=== PATIENT | female | born 1950 | race Caucasian/White ===

== ENCOUNTER 2016-05-11 08:26 | Outpatient (CLI) | payer MEDICARE | END 2016-05-11 08:27 | disposition home or self-care (01) | DX: Z12.2 Encounter for screening for malignant neoplasm of respiratory organs (principal); J43.9 Emphysema, unspecified; F17.210 Nicotine dependence, cigarettes, uncomplicated; R06.00 Dyspnea, unspecified | CPT/HCPCS: 94060; G0297; J7613 ==

== ENCOUNTER 2016-05-11 08:28 | Outpatient (CLI) | payer MEDICARE ==
[2016-05-11] MEDS ORDERED: ALBUTEROL NEB 2.5 MG/3 ML INH ONE (09:35)
== END 2016-05-11 08:29 | disposition home or self-care (01) ==
DX: R06.00 Dyspnea, unspecified (principal)

== ENCOUNTER 2016-05-29 09:39 | Outpatient (CLI) | payer MEDICARE | END 2016-05-29 09:40 | disposition home or self-care (01) | DX: Z12.31 Encounter for screening mammogram for malignant neoplasm of breast (principal) ==

== ENCOUNTER 2016-06-22 11:40 | Day surgery (SDC) | payer MEDICARE ==
[2016-06-22] MEDS ORDERED: LACTATED RINGERS 1,000 ML IV ONE ×2 (12:28→14:04)
[2016-06-22] MEDS ORDERED: fentaNYL 250 MCG/5 ML VIAL IVP ONE (13:04)
[2016-06-22] MEDS ORDERED: MIDAZOLAM 2 MG/2 ML VIAL IVP ONE (13:04)
== END 2016-06-22 11:41 | disposition home or self-care (01) ==
PROC: 0DBM8ZX Excision of Descending Colon, Via Natural or Artificial Opening Endoscopic, Diagnostic (ICD-10-PCS; principal; 2016-06-22 12:45)
DX: Z12.11 Encounter for screening for malignant neoplasm of colon (principal); D12.4 Benign neoplasm of descending colon; F32.9 Major depressive disorder, single episode, unspecified; K21.9 Gastro-esophageal reflux disease without esophagitis; I10 Essential (primary) hypertension; E78.00 Pure hypercholesterolemia, unspecified; Z98.1 Arthrodesis status; Z96.619 Presence of unspecified artificial shoulder joint; F17.210 Nicotine dependence, cigarettes, uncomplicated; Z79.82 Long term (current) use of aspirin; Z88.0 Allergy status to penicillin; Z88.2 Allergy status to sulfonamides; Z88.5 Allergy status to narcotic agent
CPT/HCPCS: 45380; J3010; J7120

== ENCOUNTER 2016-09-02 03:27 | Emergency (ER) | payer MEDICARE | END 2016-09-02 05:10 | disposition home or self-care (01) | DX: R33.9 Retention of urine, unspecified (principal); Z98.890 Other specified postprocedural states; I10 Essential (primary) hypertension; K21.9 Gastro-esophageal reflux disease without esophagitis; Z79.82 Long term (current) use of aspirin ==

== ENCOUNTER 2016-09-04 15:19 | Emergency (ER) | payer MEDICARE ==
--- NOTE | 2016-09-04 15:56 | ED Physician Documentation ---
History of Present Illness - Stated complaint Stated Complaint: FEMALE - Chief complaint Chief Complaint: Abd Pain - Additonal information Additional information: hx from pt approx 1 [place] op for urinary retention had miner placed followed up with her urologist today - miner removed - she was able to urine and empty bladder and was observed for a few hr at clinic prior to heading back to [facility] unfortunately upon arrival home she again could not void she has already spoken to her urologist who advised to come to ER and have cath replaced and it will need to stay in a week this time otherwise doing well Review of Systems Constitutional: denies: Fever GI: reports: Abdominal Pain : reports: Unable to Void PD PAST MEDICAL HISTORY - Past Medical History Cardiovascular: Hypertension, Other Respiratory: None Neuro: None Endocrine/Autoimmune: None GI: GERD 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: Other : Incontinence HEENT: None Psych: Claustrophobia Musculoskeletal: Other Derm: None - Past Surgical History Past Surgical History: Yes General: Colonoscopy Ortho: Other Cardiovascular: Angioplasty - Present Medications Home Medications: Ambulatory Orders Medication Instructions Recorded Confirmed Aspirin [Aspir-Low] 81 mg PO DAILY 06/21/16 06/21/16 Cholecalciferol [Vitamin D3] 5,000 unit PO DAILY 06/21/16 06/22/16 Ibuprofen 200 mg PO DAILY 06/21/16 06/21/16 Omeprazole 40 mg PO DAILY 06/21/16 06/21/16 Simvastatin 40 mg PO DAILY 06/21/16 06/21/16 Turmeric Root Extract [Turmeric] 500 mg PO DAILY 06/21/16 06/22/16 Ubidecarenone [Co Q-10] 100 mg PO DAILY 06/21/16 06/22/16 Vitamin B Complex Vit C No.4 150 mg PO DAILY 06/21/16 06/22/16 [Super B Complex] buPROPion [Wellbutrin Sr] 150 mg PO BID 06/21/16 06/22/16 oxyCODONE ER [OxyCONTIN] 5 mg PO DAILY 06/21/16 06/22/16 - Allergies Allergies/Adverse Reactions: Allergies Allergy/AdvReac Type Severity Reaction Status Date / Time codeine Allergy Unknown Verified 09/04/16 15:26 doxycycline Allergy Respiratory Verified 09/04/16 15:26 Penicillins Allergy Unknown Verified 09/04/16 15:26 Sulfa (Sulfonamide Allergy Unknown Verified 09/04/16 15:26 Antibiotics) - Social History Does the pt smoke?: No Smoking Status: Never smoker Does the pt drink ETOH?: No Does the pt have substance abuse?: No - Immunizations Immunizations are current?: Yes - POLST Patient has POLST: No PD ED PE NORMAL - Vitals Vital signs reviewed: Yes (BP high 2/2 pain) - General General: Alert and oriented X 3 - Cardiac Cardiac: RRR - Respiratory Respiratory: No respiratory distress, Clear bilaterally - Abdomen Abdomen: Soft, Non tender (miner already placed and draining) - Neuro Neuro: Alert and oriented X 3 Results - Vitals Vitals: Vital Signs - 24 hr 09/04/16 09/04/16 15:22 16:06 Temperature 35.6 C L Heart Rate 94 64 Respiratory 18 18 Rate Blood Pressure 220/109 H 158/64 H O2 Saturation 100 100 Oxygen O2 Source Room air PD MEDICAL DECISION MAKING - ED course ED course: BP better Departure - Departure Disposition: 01 Home, Self Care Clinical Impression: Urinary retention Condition: Good Instructions: ED Catheter Care Shayna Comments: Follow up with your urologist in a week as planned Return if worse Follow up with your PMD about your blood pressure - it was high today Discharge Date/Time: 09/04/16 16:07
[2016-09-04 16:07] VITALS: BP 158/64
== END 2016-09-04 16:07 | disposition home or self-care (01) ==
LOC: ED 15:19
DX: R33.9 Retention of urine, unspecified (principal); Z98.890 Other specified postprocedural states; I10 Essential (primary) hypertension; K21.9 Gastro-esophageal reflux disease without esophagitis; Z79.82 Long term (current) use of aspirin
CPT/HCPCS: 51702; 99283

== ENCOUNTER 2016-09-12 18:42 | Emergency (ER) | payer MEDICARE ==
--- NOTE | 2016-09-12 20:11 | ED Physician Documentation ---
PD HPI FEMALE - Stated complaint Stated Complaint: DIFFICULTY URINATING - Chief complaint Chief Complaint: General - History obtained from History obtained from: Patient - History of Present Illness Timing - onset: Today Timing - details: Gradual onset, Still present Associated symptoms: Abdominal pain, Pelvic pain Similar symptoms before: Work up / diagnostics, Treatment, Follow up Recently seen: Clinic - Additional information Additional information: Patient is a 66 year old female presenting to the emergency department for urinary retention. Patient had procedure done on her bladder about a week ago. she had, had an indwelling miner in place but she saw her urologist today who took it out. all of the testing that was performed and was within normal limits. Patient states that she went home today and she tried straight cathing 5 times with little relief. Patient called the office who told her to have a miner placed and follow up wiht them. Review of Systems Constitutional: denies: Fever, Chills Eyes: denies: Loss of vision, Decreased vision Ears: denies: Ear pain, Drainage/discharge Nose: denies: Rhinorrhea / runny nose, Congestion Throat: denies: Sore throat Cardiac: denies: Chest pain / pressure GI: reports: Abdominal Pain, Abdominal Swelling. denies: Nausea, Vomiting : reports: Unable to Void. 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: Other : Incontinence HEENT: None Psych: Claustrophobia Musculoskeletal: Other Derm: None - Past Surgical History Past Surgical History: Yes General: Colonoscopy Ortho: Other Cardiovascular: Angioplasty - Present Medications Home Medications: Ambulatory Orders Medication Instructions Recorded Confirmed Cholecalciferol [Vitamin D3] 5,000 unit PO DAILY 06/21/16 09/12/16 Omeprazole 40 mg PO DAILY 06/21/16 09/12/16 Simvastatin 40 mg PO DAILY 06/21/16 09/12/16 Turmeric Root Extract [Turmeric] 500 mg PO DAILY 06/21/16 09/12/16 Ubidecarenone [Co Q-10] 100 mg PO DAILY 06/21/16 09/12/16 Vitamin B Complex Vit C No.4 150 mg PO DAILY 06/21/16 09/12/16 [Super B Complex] buPROPion [Wellbutrin Sr] 150 mg PO BID 06/21/16 09/12/16 oxyCODONE ER [OxyCONTIN] 5 mg PO DAILY 06/21/16 09/12/16 - Allergies Allergies/Adverse Reactions: Allergies Allergy/AdvReac Type Severity Reaction Status Date / Time codeine Allergy Unknown Verified 09/12/16 19:03 doxycycline Allergy Respiratory Verified 09/12/16 19:03 Penicillins Allergy Unknown Verified 09/12/16 19:03 Sulfa (Sulfonamide Allergy Unknown Verified 09/12/16 19:03 Antibiotics) - Social History Does the pt smoke?: No Smoking Status: Never smoker Does the pt drink ETOH?: No Does the pt have substance abuse?: No - Immunizations Immunizations are current?: Yes - POLST Patient has POLST: No PD ED PE NORMAL - Vitals Vital signs reviewed: Yes - General General: Alert and oriented X 3, No acute distress - HEENT HEENT: Atraumatic, PERRL, Pharynx benign - Neck Neck: Supple, no meningeal sign, No JVD - Cardiac Cardiac: RRR, No murmur - Respiratory Respiratory: No respiratory distress, Clear bilaterally - Derm Derm: Normal color, Warm and dry, No rash - Extremities Extremities: No deformity, No tenderness to palpate - Neuro Neuro: Alert and oriented X 3, jowl trimmer 2-12 intact, No motor deficit, No sensory deficit, Normal speech - Psych Psych: Normal mood, Normal affect PD ED PE EXPANDED - General General: Alert, Anxious - Abdomen Abdomen: Tender to palpation, Suprapubic Results - Vitals Vitals: Vital Signs - 24 hr 09/12/16 09/12/16 18:59 20:38 Temperature 36.4 C L 36.7 C Heart Rate 74 65 Respiratory 20 18 Rate Blood Pressure 139/89 H 137/66 H O2 Saturation 96 98 Oxygen O2 Source Room air PD MEDICAL DECISION MAKING - ED course Complexity details: reviewed old records, re-evaluated patient, considered differential, d/w patient ED course: Patient was seen and examined at bedside. Miner had already been placed with about 250ml of urine. Patient required no further work up at this time and was stable for discharge with outpatient follow up with her urologist. Departure - Departure Disposition: 01 Home, Self Care Clinical Impression: Urinary retention Condition: Good Instructions: ED Retention Urinary Female, ED Catheter Care Miner Follow-Up: Kings Arriaza MD [Primary Care Provider] - Within 3 Days (please follow up with your urologist in the next three days) Comments: Your sympotms today are being caused by urinary retention. A miner catheter has been placed and will remain in until you are able to follow up with your urologist. You can take motrin or tylenol as needed for pain. You can return to the emergency department at any time for new, worsening or uncontrollable symptoms. Discharge Date/Time: 09/12/16 20:40
[2016-09-12 20:39] VITALS: BP 137/66
== END 2016-09-12 20:40 | disposition home or self-care (01) ==
LOC: ED 18:42
DX: R33.9 Retention of urine, unspecified (principal); R10.2 Pelvic and perineal pain; I10 Essential (primary) hypertension; K21.9 Gastro-esophageal reflux disease without esophagitis
CPT/HCPCS: 51798; 99283

== ENCOUNTER 2017-09-25 11:11 | Outpatient (CLI) | payer MEDICARE ==
--- NOTE | 2017-09-25 15:41 | XRAY Preliminary Report ---
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 [facility] SITE ID: [id number]
--- NOTE | 2017-09-25 15:54 | XRAY Report ---
EXAM: RIGHT THUMB DIGIT RADIOGRAPHY EXAM DATE: 09/25/2017 12:37 PM. CLINICAL HISTORY: Chronic pain at the base of the right thumb. COMPARISON: None. TECHNIQUE: 3 views. FINDINGS: Bones: Normal. No fracture or bone lesion. Joints: Slight narrowing and tiny osteophytes at the first carpometacarpal joint without subluxation. Tiny osteophytes off the base first distal phalanx. Normal caliber interphalangeal joint. Soft Tissues: Normal. No soft tissue swelling. 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 [facility] Referring Provider Line: [phone] SITE ID: [id number]
== END 2017-09-25 11:12 | disposition home or self-care (01) ==
LOC: DI 11:11
PROVIDERS: ATTEND Nurse Practitioner Family
DX: M79.644 Pain in right finger(s) (principal); M12.841 Other specific arthropathies, not elsewhere classified, right hand
CPT/HCPCS: 73140

== ENCOUNTER 2018-03-02 06:40 | Outpatient (CLI) | payer MEDICARE | END 2018-03-02 06:41 | disposition critical access hospital (66) | LOC: EMS 06:40 | PROVIDERS: ATTEND Surgery | DX: R51 Headache (principal); M54.5 Low back pain; R11.0 Nausea | CPT/HCPCS: A0425; A0427 ==

== ENCOUNTER 2018-03-02 07:02 | Inpatient (IN) | payer MEDICARE ==
--- NOTE | 2018-03-02 07:43 | ED Physician Documentation ---
History of Present Illness - Stated complaint Stated Complaint: BACK PX - Chief complaint Chief Complaint: Abd Pain - Additonal information Additional information: hx from pt 68 female pmnhx HTN GERD and multiple spine and joint surgeries to ED BIBA today for fever she states she has been ill for 2.5 months she describes extreme fatigue, myalgias, int frontal TENORIO, and fevers to 103 and shaking chills she has been to her PMD Dr Arriaza numerous times and states she has had an extensive work up she report + CRP PAVEL and states dx with PMR and started on prednisone about a week ago she also report her WBC was 200K sounds like she had blood cultures (she describes some large bottles being drawn not just tubes) she had two episodes of black tarry stools this week so was sent home with a stool guiac kit she self caths and has lower abd pain she has nausea and retching no CP SOA or cough no sig back pain no skin wounds nom travel she had a neg TB test Review of Systems Constitutional: reports: Fever, Chills, Myalgias Cardiac: denies: Chest pain / pressure, Palpitations Respiratory: denies: Dyspnea, Cough GI: reports: Abdominal Pain (suprapubic), Nausea, Vomiting, Bloody / black stool : reports: Other (self caths) Musculoskeletal: denies: Neck pain, Back pain Neurologic: reports: Headache (int for 2+ months, frontal) Endocrine: denies: Easy bruising / bleeding Immunocompromised: denies: Immunocompromised PD PAST MEDICAL HISTORY - Past Medical History Cardiovascular: Hypertension, Other Respiratory: None, Shortness of breath Endocrine/Autoimmune: None GI: GERD 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: Other : Incontinence HEENT: None Psych: Claustrophobia Musculoskeletal: Other Derm: None - Past Surgical History Past Surgical History: Yes General: Colonoscopy Ortho: Other Cardiovascular: Angioplasty - Present Medications Home Medications: Ambulatory Orders Medication Instructions Recorded Confirmed Simvastatin 40 mg PO QPM 06/21/16 03/02/18 Bupropion HCl [Bupropion HCl Sr] 150 mg PO BID 03/02/18 03/02/18 Escitalopram [Lexapro] 20 mg PO BID 03/02/18 03/02/18 Gabapentin [Neurontin] 300 mg PO BID 03/02/18 03/02/18 Oxycodone HCl/Acetaminophen 1 tab PO TID 03/02/18 03/02/18 [Oxycodone-Acetaminophen 5-325] Pantoprazole [Protonix] 40 mg PO QDAC 03/02/18 03/02/18 Prednisone 20 mg PO DAILY 03/02/18 03/02/18 busPIRone [Buspar] 5 mg PO BID 03/02/18 03/02/18 - Allergies Allergies/Adverse Reactions: Allergies Allergy/AdvReac Type Severity Reaction Status Date / Time codeine Allergy Unknown Verified 03/02/18 07:12 doxycycline Allergy Respiratory Verified 03/02/18 07:12 Penicillins Allergy Unknown Verified 03/02/18 07:12 Sulfa (Sulfonamide Allergy Unknown Verified 03/02/18 07:12 Antibiotics) - Social History Does the pt smoke?: No Smoking Status: Former smoker Does the pt drink ETOH?: No Does the pt have substance abuse?: No - Immunizations Immunizations are current?: Yes - POLST Patient has POLST: No PD ED PE NORMAL - Vitals Vital signs reviewed: Yes - General General: Alert and oriented X 3 - HEENT HEENT: PERRL - Neck Neck: Supple, no meningeal sign - Cardiac Cardiac: RRR, No murmur - Respiratory Respiratory: No respiratory distress, Clear bilaterally - Abdomen Abdomen: Soft, Other (mild suprapubuc TTP s peritineal sx) - Rectal Rectal: Other (flaccid hemorrhoids, dark stool but occult blood neg QC passed) - Derm Derm: Normal color - Extremities Extremities: No edema - Neuro Neuro: Alert and oriented X 3 Results - Vitals Vitals: Vital Signs - 24 hr 03/02/18 03/02/18 07:05 09:58 Temperature 37.6 C H 36.9 C Heart Rate 73 50 L Respiratory 18 16 Rate Blood Pressure 130/79 125/53 L O2 Saturation 97 99 Oxygen O2 Source Room air - Labs Labs: Laboratory Tests 03/02/18 03/02/18 03/02/18 08:05 08:05 08:05 WBC 17.6 H RBC 3.46 L Hgb 11.2 L Hct 33.2 L MCV 95.8 MCH 32.5 H MCHC 33.9 RDW 15.3 H Plt Count 199 MPV 7.2 L Neut # (Auto) 16.3 H Lymph # (Auto) 0.6 L Casey # (Auto) 0.7 Eos # (Auto) 0.0 Baso # (Auto) 0.0 Absolute Nucleated RBC 0.00 Nucleated RBC % 0.0 Sodium 133 L Potassium 3.5 Chloride 102 Carbon Dioxide 21 Anion Gap 10.0 BUN 17 Creatinine 0.8 Estimated GFR (MDRD) 72 L Glucose 157 H Lactic Acid 0.6 Calcium 8.7 Total Bilirubin 0.3 AST 14 ALT 12 Alkaline Phosphatase 48 Total Protein 6.7 Albumin 3.0 L Globulin 3.7 Albumin/Globulin Ratio 0.8 L Lipase 22 Urine Color Urine Clarity Urine pH Ur Specific [place] Urine Protein Urine Glucose (UA) Urine Ketones Urine Occult Blood Urine Nitrite Urine Bilirubin Urine Urobilinogen Ur Leukocyte Esterase Urine RBC Urine WBC Ur Squamous Epith Cells Urine Bacteria Ur Microscopic Review Urine Culture Comments 03/02/18 08:30 WBC RBC Hgb Hct MCV MCH MCHC RDW Plt Count MPV Neut # (Auto) Lymph # (Auto) Casey # (Auto) Eos # (Auto) Baso # (Auto) Absolute Nucleated RBC Nucleated RBC % Sodium Potassium Chloride Carbon Dioxide Anion Gap BUN Creatinine Estimated GFR (MDRD) Glucose Lactic Acid Calcium Total Bilirubin AST ALT Alkaline Phosphatase Total Protein Albumin Globulin Albumin/Globulin Ratio Lipase Urine Color YELLOW Urine Clarity CLEAR Urine pH 6.5 Ur Specific [place] <=1.005 Urine Protein NEGATIVE Urine Glucose (UA) NEGATIVE Urine Ketones NEGATIVE Urine Occult Blood NEGATIVE Urine Nitrite POSITIVE H Urine Bilirubin NEGATIVE Urine Urobilinogen 0.2 (NORMAL) Ur Leukocyte Esterase SMALL H Urine RBC 0-5 Urine WBC 6-10 H Ur Squamous Epith Cells FEW Squamous Urine Bacteria Many H Ur Microscopic Review INDICATED Urine Culture Comments INDICATED - Rads (name of study) CXR Radiology: See rad report (no infiltrate) CTAP Radiology: See rad report (acute R pyelo) PD MEDICAL DECISION MAKING - ED course ED course: today pt has acute pyelo causing fever and weakness - prob also explains TENORIO and back pain she had befoe EMS gave her fentanyl but also has this several month hx of fevers chills myalgias - has had blood cx outpt and two more today in ED - fup results and consider echo paged hsopitalist [id number] pt updated Departure - Departure Disposition: 66 [facility] DC/Xfer Clinical Impression: Pyelonephritis, Fever chills Condition: Good
[2018-03-02 08:11] LABS: BASOPHILS % (AUTO) 0.3 %; HGB - HEMOGLOBIN 11.2 g/dL (12.0-16.0); LYMPHOCYTES # (AUTO) 0.6 10^3/uL (1.5-3.5); LYMPHOCYTES % (AUTO) 3.3 %; MEAN CORPUSCULAR HEMOGLOBIN 32.5 pg (27.0-31.0); MEAN CORPUSCULAR HGB CONC 33.9 g/dL (32.0-36.0); MEAN CORPUSCULAR VOLUME 95.8 fL (81.0-99.0); MEAN PLATELET VOLUME 7.2 fL (7.9-10.8); MONOCYTES # (AUTO) 0.7 10^3/uL (0.0-1.0); MONOCYTES % (AUTO) 3.8 %; NEUTROPHILS # (AUTO) 16.3 10^3/uL (1.5-6.6); NEUTROPHILS % (AUTO) 92.6 %; PLT - PLATELET COUNT 199 10^3/uL (130-450); RED BLOOD COUNT 3.46 10^6/uL (4.20-5.40); RED CELL DISTRIBUTION WIDTH 15.3 % (12.0-15.0); WHITE BLOOD COUNT 17.6 x10^3/uL (4.8-10.8)
[2018-03-02] MEDS ORDERED: IOPAMIDOL-300 100 ML VIAL ONE (08:34)
[2018-03-02 08:48] LABS: BILIRUBIN,URINE NEGATIVE (NEGATIVE); GLUCOSE, URINE (UA) NEGATIVE (NEGATIVE); KETONES,URINE (UA) NEGATIVE (NEGATIVE); LEUKOCYTE ESTERASE, URINE SMALL (NEGATIVE); NITRITE,URINE POSITIVE (NEGATIVE); OCCULT BLOOD,URINE NEGATIVE (NEGATIVE); PH,URINE 6.5 PH (5.0-7.5); PROTEIN,URINE NEGATIVE (NEGATIVE); UROBILINOGEN,URINE 0.2 (NORMAL) E.U./dL (NORMAL)
[2018-03-02 08:56] LABS: CLARITY,URINE CLEAR (CLEAR)
[2018-03-02 09:02] LABS: ALBUMIN/GLOBULIN RATIO 0.8 (1.0-2.2); BILIRUBIN,TOTAL 0.3 mg/dL (0.2-1.0); CALCIUM 8.7 mg/dL (8.5-10.3); CREATININE 0.8 mg/dL (0.4-1.0); TOTAL PROTEIN 6.7 g/dL (6.7-8.2)
[2018-03-02 09:04] LABS: BACTERIA,URINE Many /HPF (None Seen); RBC,URINE 0-5 /HPF (0-5); SQUAMOUS EPITHELIAL CELL,UR FEW Squamous (<= Few)
--- NOTE | 2018-03-02 09:32 | XRAY Report ---
Reason: fever unclear etiology Procedure Date: 03/02/2018 Accession Number: [id number] / [id number] Procedure: XR - Chest 2 View X-Ray CPT Code: 99445 FULL RESULT: EXAM: CHEST RADIOGRAPHY EXAM DATE: 03/02/2018 09:14 AM. CLINICAL HISTORY: Fever, unclear etiology. COMPARISON: XR CHEST PA AND LAT 11/13/2008 1:07 PM. TECHNIQUE: 2 views. FINDINGS: Lungs/Pleura: No focal opacities evident. No pleural effusion. No pneumothorax. Normal volumes. Mediastinum: Heart and mediastinal contours are unremarkable. Other: Right shoulder hemiarthroplasty component incompletely included. IMPRESSION: No infiltrates. [facility]
[2018-03-02] MEDS ORDERED: cefTRIAXone 1 GM in SODIUM CHLORIDE 0.9% MINIBAG 100 ML IV STA (09:41)
--- NOTE | 2018-03-02 09:57 | CT Report ---
Reason: abd pain fever black stool Procedure Date: 03/02/2018 Accession Number: [id number] / [id number] Procedure: CT - Abdomen/Pelvis W/ CPT Code: FULL RESULT: EXAM: CT ABDOMEN AND PELVIS EXAM DATE: 03/02/2018 09:27 AM. CLINICAL HISTORY: Abdominal pain, fever, black stool. COMPARISONS: No prior CT. TECHNIQUE: Routine helical CT imaging was performed through the abdomen and pelvis. IV contrast: Isovue-300 100 mL. Enteric contrast: No. Reconstructions: Coronal and sagittal. In accordance with CT protocol optimization, one or more of the following dose reduction techniques were utilized for this exam: automated exposure control, adjustment of mA and/or KV based on patient size, or use of iterative reconstructive technique. FINDINGS: Lung Bases: Unremarkable. Liver: Normal. No masses. Gallbladder/Bile Ducts: Unremarkable. Spleen: Normal. Pancreas: Normal. Adrenal Glands: Normal. Kidneys: There is perinephric inflammatory stranding around the right kidney. There is mild right renal enlargement with patchy areas of diminished cortical enhancement and striated-appearing nephrogram. No nephrolithiasis or hydronephrosis. Left kidney appears normal. Peritoneal Cavity/Bowel: Normal. No free fluid, free air or adenopathy. No masses or acute inflammatory process. The appendix is not well visualized. There are multiple bowel staple lines in the lower abdomen from prior surgeries. Pelvic Organs: Normal. The bladder and visualized pelvic organs are within normal limits. There is a continence appliance near the base of the urinary bladder. Vasculature: No aneurysms or other significant abnormality. Bones: Degenerative changes and intact-appearing spinal fusion at the lumbosacral junction. Other: None. IMPRESSION: 1. Findings consistent with acute right-sided pyelonephritis. 2. No definite bowel findings to explain blackened stools. [facility] The above findings were discussed with Pearl Matthews by Dr. Harley Lynch at 09:52 hrs on 03/02/18.
[2018-03-02] MEDS ORDERED: MORPHINE 2 MG/ML CARPUJECT IVP STA (10:13)
--- NOTE | 2018-03-02 11:48 | HISTORY & PHYSICAL EXAMINATION ---
Chief Complaint - Chief Complaint Chief Complaint: fever, chills, weakness History of Present Illness - Admitted From Admitted From:: ED - History Obtained From Records Reviewed: yes History obtained from: chart review, patient Exam Limitations: none - History of Present Illness HPI Comment/Other: Yasmine Pham is a 68-year old female with a past medical history of alcoholism, tobacco dependence, polymyalgia, chronic pain, neck surgery, back surgery, depression, anxiety, and angina. She was brought in by EMS after reports of a fever at home of up to 103 F orally, chills, fatigue, and anorexia. She has been having ongoing fatigue, weight loss, and illness for the past several months and was recently diagnosed PMR and GCA, which as caused inflammation and muscle weakness. While en route, she was given 4 zofran, 100 Fentanyl and 300 NS. Blood cultures were drawn and are pending. She will be admitted to inpatient for further treatment of pyelonephritis and symptom management. 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 Now has residual urinary incontinence and retention resulting in 4-6xs per day of self straight caths) : reports: Retention, Incontinence, Frequency, Other (intermittent caths- 4-6 per day) HEENT: reports: Chronic vision loss, Chronic sinusitis Psych: reports: Depression, Anxiety, Claustrophobia Musculoskeletal: reports: Osteoarthritis, Other Derm: reports: None MRSA Hx?: No - Past Surgical History General: reports: Colonoscopy, EGD Ortho: reports: Other Cardiovascular: reports: Cardiac catheterization, Angioplasty - Family & Social History Family History: Mother: , CAD, Father: , CAD Living arrangement: At home Living Situation: With spouse/s.o. Social History Notes: The patient is to her , Ashok for the past 17 years. She lives independently and does all of her own ADLs. She has 3 grown children from a previus marriage-all of which are addicted to drugs. She and her have custody of her daughter's children ages 18 & 12 years. 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 She has been a life long alcoholic, but has been clean for ~7 months thanks to using Antabuse daily with her 's support. She has smoked cigarettes (3 PPD) since her early teens, but is now down to 0.25 PPD, and is attempting to quit. She denies illicit drug use. She wishes to be a FULL code. - Substance History Use: Uses substance without health or social issues: Tobacco Use Issues: Anxiety Disorder Abuse: Recurrent use of substance despite neg consequences: NONE Dependence: Experiences withdrawal or developed tolerances: Tobacco Dependence Issues: Anxiety Disorder, Mood Disorder Tobacco Details: Cigarettes - POLST Patient has POLST: No POLST Status: Full Code Meds/Allgy - Home Medications Home Medications: Ambulatory Orders Medication Instructions Recorded Confirmed Simvastatin 40 mg PO QPM 06/21/16 03/02/18 Bupropion HCl [Bupropion HCl Sr] 150 mg PO BID 03/02/18 03/02/18 Escitalopram [Lexapro] 20 mg PO BID 03/02/18 03/02/18 Gabapentin [Neurontin] 300 mg PO BID 03/02/18 03/02/18 Oxycodone HCl/Acetaminophen 1 tab PO TID 03/02/18 03/02/18 [Oxycodone-Acetaminophen 5-325] Pantoprazole [Protonix] 40 mg PO QDAC 03/02/18 03/02/18 Prednisone 20 mg PO DAILY 03/02/18 03/02/18 busPIRone [Buspar] 5 mg PO BID 03/02/18 03/02/18 Disulfiram [Antabuse] 250 mg PO DAILY 03/03/18 03/03/18 - Allergies Allergies/Adverse Reactions: Allergies Allergy/AdvReac Type Severity Reaction Status Date / Time codeine Allergy Unknown Verified 03/02/18 07:12 doxycycline Allergy Respiratory Verified 03/02/18 07:12 Penicillins Allergy Unknown Verified 03/02/18 07:12 Sulfa (Sulfonamide Allergy Unknown Verified 03/02/18 07:12 Antibiotics) Review of Systems - Constitutional Constitutional: reports: Fatigue, Fever, Chills, Malaise, Weakness, Poor appetite - Eyes Eyes: reports: Vision loss, Corrective lenses - Cardiovascular Cariovascular: reports: Decr. exercise tolerance - Respiratory Respiratory: reports: Cough, SOB with exertion - Gastrointestinal Gastrointestinal: reports: Diarrhea, Black stools, Nausea, Reflux/heartburn, Poor appetite - Genitourinary Genitourinary: reports: Dysuria, Frequency, Nocturia - Musculoskeletal Musculoskeletal: reports: Muscle aches - Integumentary Integumentary: reports: Dryness - Neurological Neurological: reports: Headache, Pre-existing deficit, Abnormal gait - Psychiatric Psychiatric: reports: Depression, Anxiety - Hematologic/Lymphatic Hematologic/Lymphatic: reports: Anemia - All Other Systems All Other Systems: reports: Reviewed and negative Prior Level of Functionality: Independent, lives with dog and . Exam - Vital Signs Reviewed Vital Signs: Yes Vital Signs: Vital Signs x48h Temp Pulse Resp BP Pulse Ox 03/02/18 09:58 36.9 C 50 L 16 125/53 L 99 03/02/18 07:05 37.6 C H 73 18 130/79 97 - Physical Exam General Appearance: positive: No acute distress, Alert, Anxious Eyes Bilateral: positive: PERRL ENT: positive: Pharynx nml, No signs of dehydration Neck: positive: Thyroid nml, No JVD, Trachea midline Respiratory: positive: Chest non-tender, No respiratory distress, Other (diminished) Cardiovascular: positive: Regular rate & rhythm, No gallop, Tachycardia, Systolic murmur Peripheral Pulses: positive: 2+ Abdomen: positive: No organomegaly, Nml bowel sounds, Tenderness, Guarding Back: positive: Nml inspection, CVA tenderness (R), CVA tenderness (L) Skin: positive: No rash, Warm, Dry, Pallor Extremities: positive: Non-tender, Full ROM, Nml appearance, No pedal edema Neurologic/Psychiatric: positive: Oriented x3, CN's nml (2-12), Motor nml, Sensation nml, Weakness, Depressed mood/affect Sepsis Event Note (H) - Evaluation Current Stage of Sepsis: Sepsis Possible source of Sepsis: positive: Genitourinary - Sepsis Criteria Sepsis Criteria: Suspected or Documented, Recorded Temperature greater than 38.3C or Less than 36C, Recorded Heart Rate greater than 90 bpm, WBC count greater than 12,000 or less than 4000, DIE MAKER TRIM: altered consciousness (unrelated to primary neuro pathology) Conclusion/Plan - Problem List (1) Pyelonephritis Conclusion/Plan: The patient states that she has had a lingering illness since at least mid- December and her PCP has been working this up out patient. She has been on oral antibiotics, but prior to admission, she reports fevers as high as 103 orally at home, so 911 was called. On presentation to the ED a urine sample was obtained and showed a UTI, but the patient has had new mid to lower back pain, that is intensified on exam with palpation. Imaging confirmed acute right pyelonephritis and she was given Rocephin in the ED. She had a remarkable WBC count of 17.6, but is also on daily oral prednisone. She had a temp max of 37.6 once arriving in the ED. Plan: IV fluids, IV Meropenem given her recently being on oral antibiotics, and await final culture results. (2) Urinary retention Conclusion/Plan: The patient does not know the original cause of her urinary incontinence, but has had at least 3 attempts at a bladder sling surgery, and several botox treatments. She states that as a consequence, she needs to at least daily straight cath herself and showed my her home kits that she pulled out of her purse. She understands that this puts her at risk for UTI or urinary colonization, but she would rather take this risk than deal with incontinence. Plan; Continue the purewick, and bladder scan Q shift. (3) Polymyalgia rheumatica Conclusion/Plan: The patient has been ill since at least mid-December and has been diagnosed with this condition based on lab testing. She has been started on daily Prednisone. She states that she has lost her appetite, and has lost at least 20 lbs in the past 2 months. Plan: Continue daily prednisone and treat acute illness. (4) Alcoholism Conclusion/Plan: The patient admits to life-long addiction, but claims that she has been "clean" for the past 7 months after faithfully starting to take Antabuse each morning. She denies advanced liver cirrhosis, esophageal varacies, or other chcf complications. She consequently has no teeth, and appears much older than her age. Plan: Monitor for AMA, monitor for withdrawal s/s, and allow home medication that her plans to bring in from home. (5) Tobacco dependence Conclusion/Plan: The patient admits to beng a life long smoker and started in her early 20's. She states that for much of that time she would smoke an astonishing 3 PPD! She states that she is down to a quarter of a pack per day, and she is hoping to completely quit by the end of the year. She refuses a nicotine patch. She is prescribed Wellbutrin at home, that I have continued. She denies any shortness of breath, and is not prescribed home inhalers. Plan: Offer nicotine patch for agitation. (6) Anemia Conclusion/Plan: The patient is found to have normocytic anemia with a normal MCV of 95.8, giving evidence of alcohol cessation. She has a reduced H/H of 11.2/33.2 on admission without evidence of acute bleeding, although she reports black stools which has been worked up by her PCP. Plan: Iron studies, and monitor daily labs. - Lab Results Lab results reviewed: Yes Brayan Bones: 03/04/18 05:34 03/04/18 05:34 - Diagnostic Imaging Results Diagnostic Imaging Results: positive: Final report reviewed Core Measures - Anticipated LOS I expect patient to be DC'd or transferred within 96 hours.: Yes - DVT/VTE - Prophylaxis VTE/DVT Device ordered at admit?: Yes VTE/DVT Prophylaxis med ordered at admit?: Yes - Stroke - Rehab Assessment Rehab services assessment to be ordered?: No Not Ordered - Medical Reason: Contraindicated - AMI - Statin at Admit Aspirin Prescribed on Admit: Yes
[2018-03-02 14:14] LABS: MUDS CUTOFF CONCENTRATIONS CUTOFF CONC BELOW:
[2018-03-02] MEDS: MORPHINE 2 MG/ML CARPUJECT IVP PRN ×4 (14:19→21:39)
[2018-03-02] MEDS: oxyCODONE 5 MG TABLET PO SCH ×2 (14:19→21:19)
[2018-03-02] MEDS: SODIUM CHLORIDE FLUSH 0.9% 10 ML SYRINGE IVP SCH ×3 (14:22→16:42)
[2018-03-02 14:47] LABS: AMPHETAMINE SCREEN,URINE NEGATIVE (NEGATIVE); BENZODIAZEPINES SCREEN, URINE NEGATIVE (NEGATIVE); COCAINE SCREEN URINE NEGATIVE (NEGATIVE); METHADONE SCREEN, URINE NEGATIVE (NEGATIVE); METHAMPHETAMINES SCREEN, URINE NEGATIVE (NEGATIVE); OPIATE SCREEN, URINE NEGATIVE (NEGATIVE); OXYCODONE SCREEN, URINE POSITIVE (NEGATIVE); PROPOXYPHENE SCREEN, URINE NEGATIVE (NEGATIVE); TRICYCLIC ANTIDEPRESSANT,URINE NEGATIVE (NEGATIVE)
[2018-03-02] MEDS: SODIUM CHLORIDE 0.9% 1,000 ML IV SCH ×2 (15:06→22:31)
[2018-03-02] MEDS ORDERED: IOPAMIDOL-300 100 ML VIAL IVP ONE (18:27)
[2018-03-02] MEDS: GABAPENTIN 300 MG CAPSULE PO SCH (21:19)
[2018-03-02] MEDS: ATORVASTATIN 10 MG TABLET PO SCH (21:20)
[2018-03-02] MEDS: ESCITALOPRAM 10 MG TABLET PO SCH (21:20)
[2018-03-02] MEDS: buPROPion SR 150 MG TABLET PO SCH (21:20)
[2018-03-02] MEDS: busPIRone 5 MG TABLET PO SCH (21:20)
[2018-03-03] MEDS: ACETAMINOPHEN 500 MG TABLET PO PRN ×4 (00:41→21:38)
[2018-03-03] MEDS: MORPHINE 2 MG/ML CARPUJECT IVP PRN ×7 (00:42→23:49)
[2018-03-03] MEDS: MEROPENEM 1 GM in SODIUM CHLORIDE 0.9% MINIBAG 100 ML IV SCH ×4 (00:43→23:48)
[2018-03-03] MEDS: SODIUM CHLORIDE FLUSH 0.9% 10 ML SYRINGE IVP SCH ×4 (00:43→23:49)
[2018-03-03 05:50] LABS: BASOPHILS % (AUTO) 0.3 %; EOSINOPHILS # (AUTO) 0.1 10^3/uL (0.0-0.7); EOSINOPHILS % (AUTO) 0.5 %; HGB - HEMOGLOBIN 10.8 g/dL (12.0-16.0); LYMPHOCYTES # (AUTO) 2.3 10^3/uL (1.5-3.5); LYMPHOCYTES % (AUTO) 19.7 %; MEAN CORPUSCULAR HEMOGLOBIN 32.2 pg (27.0-31.0); MEAN CORPUSCULAR HGB CONC 33.5 g/dL (32.0-36.0); MEAN PLATELET VOLUME 6.9 fL (7.9-10.8); MONOCYTES # (AUTO) 0.9 10^3/uL (0.0-1.0); MONOCYTES % (AUTO) 7.6 %; NEUTROPHILS # (AUTO) 8.3 10^3/uL (1.5-6.6); NEUTROPHILS % (AUTO) 71.9 %; PLT - PLATELET COUNT 202 10^3/uL (130-450); RED BLOOD COUNT 3.34 10^6/uL (4.20-5.40); RED CELL DISTRIBUTION WIDTH 15.4 % (12.0-15.0); WHITE BLOOD COUNT 11.5 x10^3/uL (4.8-10.8)
[2018-03-03 06:03] LABS: ALBUMIN 2.7 g/dL (3.2-5.5); ALBUMIN/GLOBULIN RATIO 0.8 (1.0-2.2); BILIRUBIN,TOTAL 0.4 mg/dL (0.2-1.0); CALCIUM 8.5 mg/dL (8.5-10.3); CREATININE 0.9 mg/dL (0.4-1.0); MAGNESIUM 1.5 mg/dL (1.7-2.8); PHOSPHORUS 3.2 mg/dL (2.5-4.6); TOTAL PROTEIN 6.1 g/dL (6.7-8.2)
[2018-03-03] MEDS: oxyCODONE 5 MG TABLET PO SCH ×3 (06:53→21:37)
[2018-03-03] MEDS: PANTOPRAZOLE 40 MG TABLET PO SCH (06:54)
[2018-03-03] MEDS: SODIUM CHLORIDE 0.9% 1,000 ML IV SCH ×3 (06:54→18:28)
[2018-03-03] MEDS: ESCITALOPRAM 10 MG TABLET PO SCH ×2 (08:16→21:37)
[2018-03-03] MEDS: buPROPion SR 150 MG TABLET PO SCH ×2 (08:16→21:37)
[2018-03-03] MEDS: busPIRone 5 MG TABLET PO SCH ×2 (08:16→21:37)
[2018-03-03] MEDS: predniSONE 20 MG TABLET PO SCH (08:16)
[2018-03-03] MEDS: GABAPENTIN 300 MG CAPSULE PO SCH ×2 (08:17→21:37)
[2018-03-03] MEDS: POLYETHYLENE GLYCOL 3350 17 GM PACKET PO SCH ×2 (08:18→10:20)
[2018-03-03] MEDS ORDERED: PREDNISONE 20 MG PO SCH (09:00)
[2018-03-03] MEDS ORDERED: POTASSIUM CHLORIDE 20 MEQ TABLET PO SCH (09:32)
[2018-03-03] MEDS: MAGNESIUM OXIDE 400 MG TABLET PO SCH ×2 (10:19→17:27)
--- NOTE | 2018-03-03 12:41 | PROVIDER PROGRESS NOTE ---
Subjective - Prog Note Date Prog Note Date: 03/03/18 Prog Note Time: 08:30 - Subjective Pt reports feeling: Improved Subjective: Yasmine states that she slept well, and is enjoying her food. She has no dysuria complaints over her normal dysfunction. She denies chest pain, nausea, vomiting, rashes, a new cough or shortness of breath. Current Medications - Current Medications Current Medications: Active Medications Acetaminophen (Tylenol) 500 mg PO Q4HR PRN PRN Reason: Pain or Fever > 38C (100.4F) Last Admin: 03/03/18 17:28 Dose: 500 mg Atorvastatin Calcium (Lipitor) 20 mg PO QPM [facility] Last Admin: 03/02/18 21:20 Dose: 20 mg Bupropion HCl (Wellbutrin Sr) 150 mg PO BID [facility] Last Admin: 03/03/18 08:16 Dose: 150 mg Buspirone HCl (Buspar) 5 mg PO BID [facility] Last Admin: 03/03/18 08:16 Dose: 5 mg Escitalopram Oxalate (Lexapro) 20 mg PO BID [facility] Last Admin: 03/03/18 08:16 Dose: 20 mg Gabapentin (Neurontin) 300 mg PO BID [facility] Last Admin: 03/03/18 08:17 Dose: 300 mg Sodium Chloride (Normal Saline 0.9%) 1,000 mls @ 125 mls/hr IV .Q8H [facility] Last Infusion: 03/03/18 15:39 Dose: Infused Meropenem 1 gm/ Sodium (Chloride) 100 mls @ 200 mls/hr IV Q8H [facility] Last Infusion: 03/03/18 16:27 Dose: Infused Magnesium Oxide (Mag Ox) 400 mg PO BIDWM [facility] Last Admin: 03/03/18 17:27 Dose: 400 mg Morphine Sulfate (Morphine (Carpuject)) 2 mg IVP Q2HR PRN PRN Reason: PAIN Last Admin: 03/03/18 17:28 Dose: 2 mg Oxycodone HCl (Roxicodone) 5 mg PO TID [facility] Last Admin: 03/03/18 12:48 Dose: 5 mg Pantoprazole Sodium (Protonix) 40 mg PO QDAC [facility] Last Admin: 03/03/18 06:54 Dose: 40 mg Polyethylene Glycol (Miralax) 17 gm PO DAILY [facility] Last Admin: 03/03/18 10:20 Dose: 17 gm Prednisone (Deltasone) 20 mg PO DAILYWM [facility] Last Admin: 03/03/18 08:16 Dose: 20 mg Sodium Chloride (Normal Saline Flush 0.9%) 10 ml IVP PRN PRN PRN Reason: NEEDED PER PROVIDER ORDERS Sodium Chloride (Normal Saline Flush 0.9%) 10 ml IVP 0100,0900,1700 [facility] Last Admin: 03/03/18 08:19 Dose: 10 ml Simvastatin 40 mg PO QPM 06/21/16 Bupropion HCl [Bupropion HCl Sr] 150 mg PO BID 03/02/18 Escitalopram [Lexapro] 20 mg PO BID 03/02/18 Gabapentin [Neurontin] 300 mg PO BID 03/02/18 Oxycodone HCl/Acetaminophen [Oxycodone-Acetaminophen 5-325] 1 tab PO TID 03/02/18 Pantoprazole [Protonix] 40 mg PO QDAC 03/02/18 Prednisone 20 mg PO DAILY 03/02/18 busPIRone [Buspar] 5 mg PO BID 03/02/18 Disulfiram [Antabuse] 250 mg PO DAILY 03/03/18 Objective - Vital Signs/Intake & Output Reviewed Vital Signs: Yes Vital Signs: Vital Signs x48h Temp Pulse Pulse Resp BP Pulse Ox 03/03/18 12:16 36.6 C 51 L 18 144/56 H 96 03/03/18 07:55 36.3 C L 66 18 131/68 H 96 03/03/18 05:46 36.5 C 48 L 16 121/72 97 Intake & Output: Intake & Output 02/28/18 03/01/18 03/02/18 03/03/18 23:59 23:59 23:59 23:59 Intake Total 3447.083 1340 Output Total 550 800 Balance 2897.083 540 - Objective General Appearance: positive: No acute distress, Alert Eyes Bilateral: positive: PERRL Eyes: OU Conjunctivae pale ENT: positive: Pharynx nml, No signs of dehydration Neck: positive: Thyroid nml, No JVD, Lymphadenopathy (R), Lymphadenopathy (L) Respiratory: positive: Chest non-tender, No respiratory distress, Breath sounds nml Cardiovascular: positive: Regular rate & rhythm, No gallop, Systolic murmur Peripheral Pulses: 1+ Radial (R), 1+ Radial (L) Abdomen: positive: Non-tender, Nml bowel sounds, No distention Back: positive: CVA tenderness (R), CVA tenderness (L) Skin: positive: No rash, Warm, Dry, Pallor Extremities: positive: Non-tender, Full ROM, Nml appearance, No pedal edema, Joint swelling Neurologic/Psychiatric: positive: Oriented x3, CN's nml (2-12), Motor nml, Sensation nml, Depressed mood/affect Reflexes: Bicep (R): 3+, Bicep (L): 3+ - Lab Results Fish Bones: 03/04/18 05:34 03/04/18 05:34 Other Labs: Lab Results x24hrs 03/03/18 03/03/18 03/03/18 Range/Units 05:42 05:42 05:42 WBC (4.8-10.8) x10^3/uL RBC (4.20-5.40) 10^6/uL Hgb (12.0-16.0) g/dL Hct (37.0-47.0) % MCV (81.0-99.0) fL MCH (27.0-31.0) pg MCHC (32.0-36.0) g/dL RDW (12.0-15.0) % Plt Count (130-450) 10^3/uL MPV (7.9-10.8) fL Neut # (Auto) (1.5-6.6) 10^3/uL Lymph # (Auto) (1.5-3.5) 10^3/uL [place] # (Auto) (0.0-1.0) 10^3/uL Eos # (Auto) (0.0-0.7) 10^3/uL Baso # (Auto) (0.0-0.1) 10^3/uL Absolute Nucleated RBC x10^3/uL Nucleated RBC % /100WBC Sodium 138 (135-145) mmol/L Potassium 3.1 L (3.5-5.0) mmol/L Chloride 108 (101-111) mmol/L Carbon Dioxide 22 (21-32) mmol/L Anion Gap 8.0 (6-13) BUN 9 (6-20) mg/dL Creatinine 0.9 (0.4-1.0) mg/dL Estimated GFR (MDRD) 62 L (>89) Glucose 119 H (70-100) mg/dL Lactic Acid 0.6 (0.5-2.2) mmol/L Calcium 8.5 (8.5-10.3) mg/dL Phosphorus 3.2 (2.5-4.6) mg/dL Magnesium 1.5 L (1.7-2.8) mg/dL Total Bilirubin 0.4 (0.2-1.0) mg/dL AST 21 (10-42) IU/L ALT 18 (10-60) IU/L Alkaline Phosphatase 48 (42-121) IU/L Total Protein 6.1 L (6.7-8.2) g/dL Albumin 2.7 L (3.2-5.5) g/dL Globulin 3.4 (2.1-4.2) g/dL Albumin/Globulin Ratio 0.8 L (1.0-2.2) TSH 2.40 (0.34-5.60) uIU/mL Urine Opiates Screen (NEGATIVE) Ur Oxycodone Screen (NEGATIVE) Urine Methadone Screen (NEGATIVE) Ur Propoxyphene Screen (NEGATIVE) Ur Barbiturates Screen (NEGATIVE) Ur Tricyclics Screen (NEGATIVE) Ur Phencyclidine Scrn (NEGATIVE) Ur Amphetamine Screen (NEGATIVE) U Methamphetamines Scrn (NEGATIVE) U Benzodiazepines Scrn (NEGATIVE) Urine Cocaine Screen (NEGATIVE) U Cannabinoids Screen (NEGATIVE) 03/03/18 03/02/18 Range/Units 05:42 08:30 WBC 11.5 H (4.8-10.8) x10^3/uL RBC 3.34 L (4.20-5.40) 10^6/uL Hgb 10.8 L (12.0-16.0) g/dL Hct 32.1 L (37.0-47.0) % MCV 96.0 (81.0-99.0) fL MCH 32.2 H (27.0-31.0) pg MCHC 33.5 (32.0-36.0) g/dL RDW 15.4 H (12.0-15.0) % Plt Count 202 (130-450) 10^3/uL MPV 6.9 L (7.9-10.8) fL Neut # (Auto) 8.3 H (1.5-6.6) 10^3/uL Lymph # (Auto) 2.3 (1.5-3.5) 10^3/uL [place] # (Auto) 0.9 (0.0-1.0) 10^3/uL Eos # (Auto) 0.1 (0.0-0.7) 10^3/uL Baso # (Auto) 0.0 (0.0-0.1) 10^3/uL Absolute Nucleated RBC 0.01 x10^3/uL Nucleated RBC % 0.1 /100WBC Sodium (135-145) mmol/L Potassium (3.5-5.0) mmol/L Chloride (101-111) mmol/L Carbon Dioxide (21-32) mmol/L Anion Gap (6-13) BUN (6-20) mg/dL Creatinine (0.4-1.0) mg/dL Estimated GFR (MDRD) (>89) Glucose (70-100) mg/dL Lactic Acid (0.5-2.2) mmol/L Calcium (8.5-10.3) mg/dL Phosphorus (2.5-4.6) mg/dL Magnesium (1.7-2.8) mg/dL Total Bilirubin (0.2-1.0) mg/dL AST (10-42) IU/L ALT (10-60) IU/L Alkaline Phosphatase (42-121) IU/L Total Protein (6.7-8.2) g/dL Albumin (3.2-5.5) g/dL Globulin (2.1-4.2) g/dL Albumin/Globulin Ratio (1.0-2.2) TSH (0.34-5.60) uIU/mL Urine Opiates Screen NEGATIVE (NEGATIVE) Ur Oxycodone Screen POSITIVE H (NEGATIVE) Urine Methadone Screen NEGATIVE (NEGATIVE) Ur Propoxyphene Screen NEGATIVE (NEGATIVE) Ur Barbiturates Screen NEGATIVE (NEGATIVE) Ur Tricyclics Screen NEGATIVE (NEGATIVE) Ur Phencyclidine Scrn NEGATIVE (NEGATIVE) Ur Amphetamine Screen NEGATIVE (NEGATIVE) U Methamphetamines Scrn NEGATIVE (NEGATIVE) U Benzodiazepines Scrn NEGATIVE (NEGATIVE) Urine Cocaine Screen NEGATIVE (NEGATIVE) U Cannabinoids Screen POSITIVE H (NEGATIVE) ABX Reporting Has patient been on IV antibiotics over the past 48 hours?: Yes Sepsis Event Note (H) - Evaluation Current Stage of Sepsis: Resolved Possible source of Sepsis: positive: Genitourinary - Sepsis Criteria Sepsis Criteria: Recorded Temperature greater than 38.3C or Less than 36C, Recorded Heart Rate greater than 90 bpm, WBC count greater than 12,000 or less than 4000 Assessment/Plan - Problem List (1) Pyelonephritis Impression: The patient states that she has had a lingering illness since at least mid- December and her PCP has been working this up out patient. She has been on oral antibiotics, but prior to admission, she reports fevers as high as 103 orally at home, so 911 was called. Her UA showes UTI with cultures pending. She continues to have midd to lower back pain, that is intensified on exam with palpation. Imaging confirmed acute right pyelonephritis and she was given Rocephin in the ED. She had a remarkable WBC count of 17.6, that is now down to 11.5, but is also on daily oral prednisone. She had a temp max of 38 overnight, but not since that time. She states that she woke up in a full body sweat this morning. Plan: IV fluids, IV Meropenem given her recently being on oral antibiotics, and await final culture results. (2) Urinary retention Impression: The patient does not know the original cause of her urinary incontinence, but has had at least 3 attempts at a bladder sling surgery, and several botox tr eatments. She states that as a consequence, she needs to at least daily straight cath herself and showed my her home kits that she pulled out of her purse. She understands that this puts her at risk for UTI or urinary colonization, but she would rather take this risk than deal with incontinence. Bladder scan today was acceptable at 186mL and she continues on the PureWick. Plan; Continue the purewick, and bladder scan Q shift. (3) Polymyalgia rheumatica Impression: The patient has been ill since at least mid-December and has been diagnosed with this condition based on lab testing. She has been started on daily Prednisone. She states that she has lost her appetite, and has lost at least 20 lbs in the past 2 months. Plan: Continue daily prednisone and treat acute illness. (4) Alcoholism Impression: The patient admits to life-long addiction, but claims that she has been "clean" for the past 7 months after faithfully starting to take Antabuse each morning, which we are allowing here since the hospital cannot supply this. She denies advanced liver cirrhosis, esophageal varacies, or other senior care complications. She consequently has no teeth, and appears much older than her age. Plan: Monitor for AMA, monitor for withdrawal s/s, and allow home medication that her plans to bring in from home. (5) Tobacco dependence Impression: The patient admits to beng a life long smoker and started in her early 20's. She states that for much of that time she would smoke an astonishing 3 PPD! She states that she is down to a quarter of a pack per day, and she is hoping to completely quit by the end of the year. She refuses a nicotine patch. She is p rescribed Wellbutrin at home, that I have continued. She denies any shortness of breath, and is not prescribed home inhalers. Plan: Offer nicotine patch for agitation. (6) Anemia Impression: The patient is found to have normocytic anemia with a normal MCV of 95.8, giving evidence of alcohol cessation. She has a reduced H/H of 11.2/33.2 on admission without evidence of acute bleeding, although she reports black stools which has been worked up by her PCP. Plan: Iron studies, and monitor daily labs. (7) [place] Impression: The patient continues to be bradycardic with heart rates 30-40's. She states that she has symptoms of dizziness at home and notes that her heart rate is always "64" bpm at the clinic. She also has ongoing urinary retention in which she admits to 4-6 times per day of straight cathing herself. Since being inpatient, she has not required this and has been doing well with a pure wick in place. There is a [place] wide shortage on theophylline, so hopefully she can get this filled upon discharge. Plan: I will prescribe theophylline that will need to be started at home for it's off label use of helping with bradycardia and she has COPD.
[2018-03-03] MEDS: SODIUM CHLORIDE FLUSH 0.9% 10 ML SYRINGE IVP PRN (19:34)
[2018-03-03] MEDS: NICOTINE 14 MG PATCH TOP SCH (21:36)
[2018-03-03] MEDS: ATORVASTATIN 10 MG TABLET PO SCH (21:37)
[2018-03-03] MEDS ORDERED: MIN OIL/DIMETHICON/COCONUT OIL 92 GM TUBE TOP PRN (23:45)
[2018-03-04] MEDS: MORPHINE 2 MG/ML CARPUJECT IVP PRN ×4 (03:56→10:42)
[2018-03-04] MEDS: SODIUM CHLORIDE FLUSH 0.9% 10 ML SYRINGE IVP PRN ×2 (04:01→06:39)
[2018-03-04] MEDS: PANTOPRAZOLE 40 MG TABLET PO SCH (06:16)
[2018-03-04] MEDS: oxyCODONE 5 MG TABLET PO SCH ×2 (06:16→14:05)
[2018-03-04] MEDS: MEROPENEM 1 GM in SODIUM CHLORIDE 0.9% MINIBAG 100 ML IV SCH (06:17)
[2018-03-04 06:18] LABS: BASOPHILS % (AUTO) 0.5 %; EOSINOPHILS # (AUTO) 0.1 10^3/uL (0.0-0.7); EOSINOPHILS % (AUTO) 0.8 %; HGB - HEMOGLOBIN 10.4 g/dL (12.0-16.0); LYMPHOCYTES # (AUTO) 2.4 10^3/uL (1.5-3.5); LYMPHOCYTES % (AUTO) 29.4 %; MEAN CORPUSCULAR HEMOGLOBIN 32.9 pg (27.0-31.0); MEAN CORPUSCULAR HGB CONC 33.9 g/dL (32.0-36.0); MEAN CORPUSCULAR VOLUME 97.2 fL (81.0-99.0); MEAN PLATELET VOLUME 7.2 fL (7.9-10.8); MONOCYTES # (AUTO) 0.4 10^3/uL (0.0-1.0); MONOCYTES % (AUTO) 5.2 %; NEUTROPHILS # (AUTO) 5.3 10^3/uL (1.5-6.6); NEUTROPHILS % (AUTO) 64.1 %; PLT - PLATELET COUNT 205 10^3/uL (130-450); RED BLOOD COUNT 3.17 10^6/uL (4.20-5.40); RED CELL DISTRIBUTION WIDTH 16.1 % (12.0-15.0); WHITE BLOOD COUNT 8.3 x10^3/uL (4.8-10.8)
[2018-03-04 06:21] LABS: ALBUMIN 2.7 g/dL (3.2-5.5); ALBUMIN/GLOBULIN RATIO 0.8 (1.0-2.2); BILIRUBIN,TOTAL 0.4 mg/dL (0.2-1.0); CALCIUM 8.7 mg/dL (8.5-10.3); CREATININE 0.7 mg/dL (0.4-1.0); TOTAL PROTEIN 6.3 g/dL (6.7-8.2)
[2018-03-04] MEDS: SODIUM CHLORIDE FLUSH 0.9% 10 ML SYRINGE IVP SCH ×3 (06:24→10:44)
[2018-03-04] MEDS: buPROPion SR 150 MG TABLET PO SCH (08:27)
[2018-03-04] MEDS: GABAPENTIN 300 MG CAPSULE PO SCH (08:27)
[2018-03-04] MEDS: predniSONE 20 MG TABLET PO SCH (08:28)
[2018-03-04] MEDS: MAGNESIUM OXIDE 400 MG TABLET PO SCH (08:28)
[2018-03-04] MEDS: ESCITALOPRAM 10 MG TABLET PO SCH (08:28)
[2018-03-04] MEDS: NICOTINE 14 MG PATCH TOP SCH (08:29)
--- NOTE | 2018-03-04 08:31 | Discharge Plan ---
Discharge Plan Disposition: 01 Home, Self Care Condition: Good Prescriptions: Ciprofloxacin HCl [Cipro] 500 mg PO BID 12 Days #24 tablet oxyCODONE [Roxicodone] 5 mg PO Q4-6H #25 tablet Saccharomyces Boulardii [Florastor] 250 mg PO BID #60 capsule Theophylline [Theodur] 300 mg PO DAILY #30 tablet Diet: Regular Activity Restrictions: No Restrictions Shower Restrictions: No Instruction Topics: Saccharomyces boulardii Florastor oral dosage forms, Ciprofloxacin tablets, Oxycodone tablets or capsules, Theophylline Additional Instructions or Follow Up instructions: You were admitted for quite a serious infection called pylonephritis, as this infection traveled up into your kidneys causing back pain. The most likely cause of this was inserting a foreign object (catheter) into your bladder, but this benefit still out weighs the risk of infection at this point. You were treated with IV antibiotics that will continue in a pill form for the next 12 days. Please also take a probiotic for the next month to keep your gut healthy. You were found to have very low heart rates, sometimes into the 30's, but generally 40-50's and the most likely cause is a condition called vagotonia which is due to your bladder dysfunction. The treatment for this is stimulants such as caffeine, nicotine and a medication called theophylline, which I have sent to the pharmacy. There is a national shortage, so there may be a delay in your prescription. Just FYI: See instructions below, which I am sure you have: For women Assemble all equipment and wash the hands with soap and water. Clean intermittent catheterization can be performed in any comfortable position; however, many women find it easiest to stand with one foot on the toilet. Clean the vulva with soap and water. With the nondominant hand, spread the labia with the second and fourth finger, using the middle finger to locate the urethral opening, which is below the clitoris and above the vagina. Gently insert the catheter into the opening with the dominant hand. Guide the catheter toward the umbilicus (ie, belly button). Urine will begin to flow when the catheter has been inserted two to three inches. Advance the catheter another inch and hold it in place until the urine flow stops and the bladder is empty. Remove the catheter slowly to allow complete drainage of the bladder. For patients with bladder emptying dysfunction, we suggest intermittent catheterization over chronic indwelling catheters. So having an indwelling miner is not ideal in your case, but you should check with your urologist. Please see your PCP within one week of this stay. No Smoking: If you smoke, Please STOP! Call for help. Follow-up with: Kings Arriaza MD [Primary Care Provider] -
[2018-03-04] MEDS: busPIRone 5 MG TABLET PO SCH (08:40)
[2018-03-04 08:51] VITALS: BP 165/62
[2018-03-04] MEDS ORDERED: SENNA 8.6 MG TABLET PO SCH (09:00)
[2018-03-04] MEDS ORDERED: DOCUSATE SODIUM 250 MG CAPSULE PO SCH (09:00)
[2018-03-04] MEDS: POLYETHYLENE GLYCOL 3350 17 GM PACKET PO SCH (10:04)
--- NOTE | 2018-03-04 11:02 | DISCHARGE SUMMARY ---
Discharge Summary Admit Date: 03/02/18 Discharge Date: 03/04/18 Discharging Provider: BRAEDEN Calderon Primary Care Provider: Kings Arriaza Code Status: Attempt Resuscitation Condition at Discharge: Good Discharge Disposition: 01 Home, Self Care - DIAGNOSES Admission Diagnoses: Tubulo-interstitial nephritis, not spcf as acute or chronic (N12) Urinary retention (R33.9) Polymyalgia rheumatica syndrome (M35.3) Alcoholism (F10.20) Tobacco dependence (F17.200) Anemia (D64.9) Discharge Diagnoses with Status of Each Condition: Pyelonephritis (N12) new on this admit, oral antibiotics to continue. Urinary retention (R33.9) chronic, stable. Acute exacerbation of chronic low back pain (M54.5) improved, stable. Intermittent self-catheterization of bladder (Z78.9)chronic, stable. PMR (polymyalgia rheumatica) (M35.3) chronic, stable. Alcoholism (F10.20) chronic, stable. Tobacco dependence (F17.200) chronic, stable. Anemia (D64.9) chronic, stable. 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 Bradycardia (R00.1) chronic, stable. - HPI History of Present Illness: Yasmine Pham is a 68-year old female with a past medical history of alcoholism, tobacco dependence, polymyalgia, chronic pain, neck surgery, back surgery, depression, anxiety, and angina. She was brought in by EMS after reports of a fever at home of up to 103 F orally, chills, fatigue, and anorexia. She has been having ongoing fatigue, weight loss, and illness for the past several months and was recently diagnosed PMR and GCA, which as caused inflammation and muscle weakness. While en route, she was given 4 zofran, 100 Fentanyl and 300 NS. Blood cultures were drawn and are pending. She will be admitted to inpatient for further treatment of pyelonephritis and symptom management. - HOSPITAL COURSE Hospital Course: (1) Pyelonephritis The patient states that she has had a lingering illness since at least mid- December and her PCP has been working this up out patient. She has been on oral antibiotics, but prior to admission, she reports fevers as high as 103 orally at home, so 911 was called. Her UA showes UTI with cultures that grew out e. coli. She continued to have mid to lower back pain, that is intensified on exam with palpation. Imaging confirmed acute right pyelonephritis and she was given IV antibiotics, with oral antibiotics that should continue for 14 days total. (2) Urinary retention The patient does not know the original cause of her urinary incontinence, but has had at least 3 attempts at a bladder sling surgery, and several botox treatments. She states that as a consequence, she needs to at least daily straight cath herself and showed my her home kits that she pulled out of her purse. She understands that this puts her at risk for UTI or urinary colonization, but she would rather take this risk than deal with incontinence. Bladder scan today was acceptable at 186mL and she continues on the PureWick. (3) Polymyalgia rheumatica The patient has been ill since at least mid-December and has been diagnosed with this condition based on lab testing. She has been started on daily Prednisone. She states that she has lost her appetite, and has lost at least 20 lbs in the past 2 months. (4) Alcoholism The patient admits to life-long addiction, but claims that she has been "clean" for the past 7 months after faithfully starting to take Antabuse each morning, which we are allowing here since the hospital cannot supply this. She denies advanced liver cirrhosis, esophageal varacies, or other nursing home complications. She consequently has no teeth, and appears much older than her age. (5) Tobacco dependence The patient admits to beng a life long smoker and started in her early 20's. She states that for much of that time she would smoke an astonishing 3 PPD! She states that she is down to a quarter of a pack per day, and she is hoping to completely quit by the end of the year. She refuses a nicotine patch. She is prescribed Wellbutrin at home, that I have continued. She denies any shortness of breath, and is not prescribed home inhalers. (6) Anemia The patient is found to have normocytic anemia with a normal MCV of 95.8, giving evidence of alcohol cessation. She has a reduced H/H of 11.2/33.2 on admission without evidence of acute bleeding, although she reports black stools which has been worked up by her PCP. (7) Vagotonia The patient continues to be bradycardic with heart rates 30-40's. She states that she has symptoms of dizziness at home and notes that her heart rate is always "64" bpm at the clinic. She also has ongoing urinary retention in which she admits to 4-6 times per day of straight cathing herself. Since being inpatient, she has not required this and has been doing well with a pure wick in place. There is a nation wide shortage on theophylline, so hopefully she can get this filled upon discharge. Disposition: The patient was medically stable and discharged home. - ALLERGIES Allergies/Adverse Reactions: Allergies Allergy/AdvReac Type Severity Reaction Status Date / Time codeine Allergy Unknown Verified 03/02/18 07:12 doxycycline Allergy Respiratory Verified 03/02/18 07:12 Penicillins Allergy Unknown Verified 03/02/18 07:12 Sulfa (Sulfonamide Allergy Unknown Verified 03/02/18 07:12 Antibiotics) - MEDICATIONS Home Medications: Ambulatory Orders Medication Instructions Recorded Confirmed Simvastatin 40 mg PO QPM 06/21/16 03/02/18 Bupropion HCl [Bupropion HCl Sr] 150 mg PO BID 03/02/18 03/02/18 Escitalopram [Lexapro] 20 mg PO BID 03/02/18 03/02/18 Gabapentin [Neurontin] 300 mg PO BID 03/02/18 03/02/18 Oxycodone HCl/Acetaminophen 1 tab PO TID 03/02/18 03/02/18 [Oxycodone-Acetaminophen 5-325] Pantoprazole [Protonix] 40 mg PO QDAC 03/02/18 03/02/18 Prednisone 20 mg PO DAILY 03/02/18 03/02/18 busPIRone [Buspar] 5 mg PO BID 03/02/18 03/02/18 Disulfiram [Antabuse] 250 mg PO DAILY 03/03/18 03/03/18 Ciprofloxacin HCl [Cipro] 500 mg PO BID 12 Days #24 tablet 03/04/18 Saccharomyces Boulardii [Florastor] 250 mg PO BID #60 capsule 03/04/18 Theophylline [Theodur] 300 mg PO DAILY #30 tablet 03/04/18 oxyCODONE [Roxicodone] 5 mg PO Q4-6H #25 tablet 03/04/18 - PHYSICAL EXAM AT DISCHARGE General Appearance: positive: No acute distress, Alert Eyes Bilateral: positive: PERRL, No lid inflammation ENT: positive: Pharynx nml, No signs of dehydration Neck: positive: Thyroid nml, No JVD, Trachea midline Respiratory: positive: Chest non-tender, No respiratory distress, Breath sounds nml Cardiovascular: positive: No gallop, Bradycardia, Systolic murmur, Decreased pulse(s) Peripheral Pulses: positive: 2+ Abdomen: positive: Non-tender, Nml bowel sounds Back: positive: CVA tenderness (R) Skin: positive: No rash, Warm, Dry, Diaphoresis, Pallor Extremities: positive: Non-tender, Full ROM, Nml appearance, No pedal edema Neurologic/Psychiatric: positive: Oriented x3, CN's nml (2-12), Motor nml, Sensation nml, Weakness, Depressed mood/affect Reflexes: Bicep (R): 3+, Bicep (L): 3+ - LABS Result Diagrams: 03/04/18 05:34 03/04/18 05:34 - SEPSIS Current Stage of Sepsis: Resolved Possible source of Sepsis: Genitourinary Sepsis Criteria: Recorded Temperature greater than 38.3C or Less than 36C, Recorded Heart Rate greater than 90 bpm, WBC count greater than 12,000 or less than 4000 - FOLLOW UP Follow Up: Disposition: 01 Home, Self Care Prescriptions: Ciprofloxacin HCl [Cipro] 500 mg PO BID 12 Days #24 tablet oxyCODONE [Roxicodone] 5 mg PO Q4-6H #25 tablet Saccharomyces Boulardii [Florastor] 250 mg PO BID #60 capsule Theophylline [Theodur] 300 mg PO DAILY #30 tablet Instruction Topics: Saccharomyces boulardii Florastor oral dosage forms, Ciprofloxacin tablets, Oxycodone tablets or capsules, Theophylline Additional Instructions or Follow Up instructions: You were admitted for quite a serious infection called pylonephritis, as this infection traveled up into your kidneys causing back pain. The most likely cause of this was inserting a foreign object (catheter) into your bladder, but this benefit still out weighs the risk of infection at this point. You were treated with IV antibiotics that will continue in a pill form for the next 12 days. Please also take a probiotic for the next month to keep your gut healthy. You were found to have very low heart rates, sometimes into the 30's, but generally 40-50's and the most likely cause is a condition called vagotonia which is due to your bladder dysfunction. The treatment for this is stimulants such as caffeine, nicotine and a medication called theophylline, which I have sent to the pharmacy. There is a national shortage, so there may be a delay in your prescription. For patients with bladder emptying dysfunction, we suggest intermittent catheterization over chronic indwelling catheters. So having an indwelling miner is not ideal in your case, but you should check with your urologist. Please see your PCP within one week of this stay. - TIME SPENT Time Spent in Discharge (Minutes): 60
[2018-03-04] MEDS ORDERED: MORPHINE SOL 10 MG/0.5 ML SYRINGE PO PRN (11:54)
[2018-03-04] MEDS ORDERED: CIPROFLOXACIN 250 MG TABLET PO SCH (12:00)
[2018-03-04] MEDS: ACETAMINOPHEN 500 MG TABLET PO PRN (14:04)
== END 2018-03-04 14:55 | disposition home or self-care (01) | DRG 698 ==
LOC: EDUNIT# → ED 07:02 → MS2 11:46
PROVIDERS: ADMIT Nurse Practitioner; ATTEND Nurse Practitioner
DX: T83.518A Infection and inflammatory reaction due to other urinary catheter, initial encounter (principal); A41.51 Sepsis due to Escherichia coli [E. coli]; N10 Acute pyelonephritis; Z87.891 Personal history of nicotine dependence; R33.9 Retention of urine, unspecified; M54.5 Low back pain; M35.3 Polymyalgia rheumatica; F10.20 Alcohol dependence, uncomplicated; D64.9 Anemia, unspecified; G52.2 Disorders of vagus nerve; R00.1 Bradycardia, unspecified; I10 Essential (primary) hypertension; F10.21 Alcohol dependence, in remission; K21.9 Gastro-esophageal reflux disease without esophagitis; F32.9 Major depressive disorder, single episode, unspecified; F41.9 Anxiety disorder, unspecified; E78.00 Pure hypercholesterolemia, unspecified; I25.10 Atherosclerotic heart disease of native coronary artery without angina pectoris; J43.9 Emphysema, unspecified; G43.909 Migraine, unspecified, not intractable, without status migrainosus; R35.0 Frequency of micturition; R32 Unspecified urinary incontinence; H54.7 Unspecified visual loss; J32.9 Chronic sinusitis, unspecified; F40.240 Claustrophobia; M19.90 Unspecified osteoarthritis, unspecified site; F17.210 Nicotine dependence, cigarettes, uncomplicated; Z79.891 Long term (current) use of opiate analgesic; Z79.52 Long term (current) use of systemic steroids; Z87.01 Personal history of pneumonia (recurrent); Z98.61 Coronary angioplasty status; Z87.820 Personal history of traumatic brain injury
CPT/HCPCS: 36415; 51701; 71046; 74177; 80053; 80306; 81001; 81003; 83605; 83690; 83735; 84100; 84443; 85025; 87040; 87086; 87181; 93306; 96365; 96375; 99283; 99285

== ENCOUNTER 2018-06-13 12:42 | Emergency (ER) | payer MEDICARE ==
[2018-06-13 12:53] VITALS: BP 123/69
[2018-06-13] MEDS ORDERED: HYDROcod/ACETAM 5/325 MG TABLET PO STA (12:58)
[2018-06-13] MEDS ORDERED: cefUROXime axetil 250 MG TABLET PO STA (13:00)
[2018-06-13] MEDS ORDERED: TETANUS/DIPHTHERIA/PERTUSSIS 0.5 ML SYRINGE IM ONE (13:04)
[2018-06-13] MEDS ORDERED: BUFFERED LIDOCAINE 10 ML SYRINGE SUBQ STA (13:04)
--- NOTE | 2018-06-13 13:04 | ED Physician Documentation ---
History of Present Illness - Stated complaint Stated Complaint: CAT BITE - Chief complaint Chief Complaint: General - History obtained from History obtained from: Patient - History of Present Illness Timing: Other (A week ago her own cat bit her on the dorsal right wrist. It was slowly improving up got worse today with more swelling and pain. 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 : Retention, Incontinence, Frequency, Other HEENT: Chronic vision loss, Chronic sinusitis Psych: Depression, Anxiety, Claustrophobia Musculoskeletal: Osteoarthritis, Other Derm: None - Past Surgical History Past Surgical History: Yes General: Colonoscopy, EGD Ortho: Other Cardiovascular: Cardiac catheterization, Angioplasty - Present Medications Home Medications: Ambulatory Orders Medication Instructions Recorded Confirmed Simvastatin 40 mg PO QPM 06/21/16 03/02/18 Bupropion HCl [Bupropion HCl Sr] 150 mg PO BID 03/02/18 03/02/18 Escitalopram [Lexapro] 20 mg PO BID 03/02/18 03/02/18 Gabapentin [Neurontin] 300 mg PO BID 03/02/18 03/02/18 Oxycodone HCl/Acetaminophen 1 tab PO TID 03/02/18 03/02/18 [Oxycodone-Acetaminophen 5-325] Pantoprazole [Protonix] 40 mg PO QDAC 03/02/18 03/02/18 Prednisone 20 mg PO DAILY 03/02/18 03/02/18 busPIRone [Buspar] 5 mg PO BID 03/02/18 03/02/18 Disulfiram [Antabuse] 250 mg PO DAILY 03/03/18 03/03/18 Ciprofloxacin HCl [Cipro] 500 mg PO BID 12 Days #24 tablet 03/04/18 Saccharomyces Boulardii [Florastor] 250 mg PO BID #60 capsule 03/04/18 Theophylline [Theodur] 300 mg PO DAILY #30 tablet 03/04/18 oxyCODONE [Roxicodone] 5 mg PO Q4-6H #25 tablet 03/04/18 Cefdinir 300 mg PO BID #20 capsule 06/13/18 Oxycodone HCl/Acetaminophen 1 - 2 each PO Q6H PRN #10 tablet 06/13/18 [Percocet 5-325 mg Tablet] - Allergies Allergies/Adverse Reactions: Allergies Allergy/AdvReac Type Severity Reaction Status Date / Time codeine Allergy Unknown Verified 03/02/18 07:12 doxycycline Allergy Respiratory Verified 03/02/18 07:12 Penicillins Allergy Unknown Verified 03/02/18 07:12 Sulfa (Sulfonamide Allergy Unknown Verified 03/02/18 07:12 Antibiotics) - Social History Does the pt smoke?: No Smoking Status: Never smoker Does the pt drink ETOH?: No Does the pt have substance abuse?: No - Immunizations Immunizations are current?: Yes - POLST Patient has POLST: No POLST Status: Full Code PD ED PE NORMAL - Vitals Vital signs reviewed: Yes - General General: Alert and oriented X 3, No acute distress - Extremities Extremities: Other (There are 3 puncture wounds over the distal dorsal radius, with some tender sort of between all of them. She is relatively painless flexion and extension and full range of motion at the wrist. Bedside ultrasound demonstrates a small fluid collection in the dorsal distal forearm.) - Neuro Neuro: Alert and oriented X 3, Normal speech Results - Vitals Vitals: Vital Signs - 24 hr 06/13/18 12:51 Temperature 36.8 C Heart Rate 94 Respiratory 18 Rate Blood Pressure 123/69 O2 Saturation 97 Oxygen O2 Source Room air Procedures - Abscess I&D (location) R dorsal wrist Preparation: Confirmed with ultrasound, Chlorhexadine, Lidocaine 1% Incision: Incised with scalpel, Loculations broken, Culture obtained. No: Purulent drainage (it was more serous), Packed Other: Pt tolerated well, Dressing applied, Antibiotic prescribed Departure - Departure Disposition: 01 Home, Self Care Clinical Impression: Infected cat bite of forearm Qualifiers: Encounter type: initial encounter Laterality: right Qualified Code(s): S51.851A - Open bite of right forearm, initial encounter; L08.9 - Local infection of the skin and subcutaneous tissue, unspecified; W55.01XA - Bitten by cat, initial encounter Condition: Good Record reviewed to determine appropriate education?: Yes Instructions: ED Bite Animal General Prescriptions: Cefdinir 300 mg PO BID #20 capsule Oxycodone HCl/Acetaminophen [Percocet 5-325 mg Tablet] 1 - 2 each PO Q6H PRN #10 tablet PRN Reason: pain Comments: We are performing a wound culture, the results should be done in 48-72 hours. If antibiotic change is necessary we will call you. Return if worse in the meantime, especially if you develop increased pain, fevers, cannot keep down the medication. Otherwise follow-up with your physician in approximately 2-3 days[address] not drink or drive while taking narcotic pain medication. Note that many narcotic pain relievers also contain Tylenol/acetaminophen. Please ensure that your total dose of acetaminophen from all sources does not exceed 3 g (3000 mg) per day. You may get constipated while on this medication. Take a stool softener such as Colace twice a day while you are on it. Also add an [id number] laxative such as senna or MiraLAX on any day that you do not have a bowel movement. If you received a narcotic pain medication or sedative while in the emergency department, do not drive for the next 24 hours.
--- NOTE | 2018-06-13 13:39 | XRAY Report ---
Reason: dorsal wrist inj Procedure Date: 06/13/2018 Accession Number: [id number] / [id number] Procedure: XR - Forearm RT CPT Code: FULL RESULT: EXAM: RIGHT FOREARM RADIOGRAPHY EXAM DATE: 06/13/2018 01:16 PM. CLINICAL HISTORY: Right forearm pain. COMPARISON: None. TECHNIQUE: 2 views. FINDINGS: Bones: Normal. No fractures or bone lesions. Joints: Normal. No effusions or subluxations in the visualized wrist or elbow joints. Soft Tissues: Mild soft tissue swelling at the distal forearm. No soft tissue gas. IMPRESSION: No acute osseous abnormality. RADIA
== END 2018-06-13 13:46 | disposition home or self-care (01) ==
LOC: ED 12:42
DX: S51.851A Open bite of right forearm, initial encounter (principal); L08.9 Local infection of the skin and subcutaneous tissue, unspecified; W55.01XA Bitten by cat, initial encounter; I10 Essential (primary) hypertension; E78.00 Pure hypercholesterolemia, unspecified; I25.10 Atherosclerotic heart disease of native coronary artery without angina pectoris; Z23 Encounter for immunization
CPT/HCPCS: 10060; 73090; 87070; 87205; 90471; 90715; 99283; A9270

== ENCOUNTER 2018-07-10 09:14 | Outpatient (CLI) | payer MEDICARE | END 2018-07-10 09:15 | disposition critical access hospital (66) | LOC: EMS 09:14 | PROVIDERS: ATTEND Surgery | DX: R46.4 Slowness and poor responsiveness (principal); R19.7 Diarrhea, unspecified; R63.0 Anorexia | CPT/HCPCS: A0425; A0429 ==

== ENCOUNTER 2018-07-10 09:36 | Emergency (ER) | payer MEDICARE ==
--- NOTE | 2018-07-10 10:11 | ED Physician Documentation ---
History of Present Illness - Stated complaint Stated Complaint: ETOH - Chief complaint Chief Complaint: General - History obtained from History obtained from: Patient, Friend, EMS - History of Present Illness Timing: Today - Additonal information Additional information: 68-year-old alcoholic female was found by her neighbors to be unconscious in her bed next to a bottle of vodka. They were anticipating taking her to the airport today to switch places with her who is caring for a family member. The neighbors report that the patient is taking care of a 12-year-old grandchild and the 12-year-old grandchild has come to their home about 3 days ago because the grandmother was drinking heavily. Apparently she has not eaten for about 2 days. She was significantly intoxicated and the ambulance was summoned. She resides here stating she does not feel otherwise ill she does indicate that she has been drinking heavily for about 3 months since the older grandchild has left the home. Review of Systems Constitutional: reports: Fatigue. denies: Fever, Chills, Myalgias Eyes: denies: Decreased vision Ears: denies: Ear pain Nose: denies: Rhinorrhea / runny nose, Congestion Throat: denies: Sore throat Cardiac: denies: Chest pain / pressure, Palpitations Respiratory: reports: Cough. denies: Dyspnea GI: reports: Nausea. 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 : Retention, Incontinence, Frequency, Other HEENT: Chronic vision loss, Chronic sinusitis Psych: Depression, Anxiety, Claustrophobia Musculoskeletal: Osteoarthritis, Other Derm: None - Past Surgical History Past Surgical History: Yes General: Colonoscopy, EGD Ortho: Other Cardiovascular: Cardiac catheterization, Angioplasty - Present Medications Home Medications: Ambulatory Orders Medication Instructions Recorded Confirmed Simvastatin 40 mg PO QPM 06/21/16 03/02/18 Bupropion HCl [Bupropion HCl Sr] 150 mg PO BID 03/02/18 03/02/18 Gabapentin [Neurontin] 300 mg PO BID 03/02/18 03/02/18 Pantoprazole [Protonix] 40 mg PO QDAC 03/02/18 03/02/18 Prednisone 20 mg PO DAILY 03/02/18 03/02/18 busPIRone [Buspar] 5 mg PO BID 03/02/18 03/02/18 Saccharomyces Boulardii [Florastor] 250 mg PO BID #60 capsule 03/04/18 Theophylline [Theodur] 300 mg PO DAILY #30 tablet 03/04/18 oxyCODONE [Roxicodone] 5 mg PO Q4-6H #25 tablet 03/04/18 FLUoxetine [PROzac] 10 mg PO DAILY 07/10/18 07/10/18 Nitrofurantoin Monohyd/M-Cryst 100 mg PO BID #10 capsule 07/10/18 [Macrobid 100 mg Capsule] - Allergies Allergies/Adverse Reactions: Allergies Allergy/AdvReac Type Severity Reaction Status Date / Time codeine Allergy Unknown Verified 03/02/18 07:12 doxycycline Allergy Respiratory Verified 03/02/18 07:12 Penicillins Allergy Unknown Verified 03/02/18 07:12 Sulfa (Sulfonamide Allergy Unknown Verified 07/10/18 09:46 Antibiotics) - Social History Does the pt smoke?: No Smoking Status: Never smoker Does the pt drink ETOH?: No Does the pt have substance abuse?: No - Immunizations Immunizations are current?: Yes - POLST Patient has POLST: No POLST Status: Full Code PD ED PE NORMAL - Vitals Vital signs reviewed: Yes (normal ) - General General: No acute distress, Well developed/nourished, Other (The patient is withdrawn answers appropriatlely ) - HEENT HEENT: Atraumatic, PERRL, EOMI - Neck Neck: Supple, no meningeal sign - Cardiac Cardiac: RRR, No murmur - Respiratory Respiratory: No respiratory distress, Clear bilaterally - Abdomen Abdomen: Soft, Non tender - Back Back: No CVA TTP, No spinal TTP - Derm Derm: Normal color, Warm and dry, No rash - Extremities Extremities: No deformity, No edema - Neuro Neuro: Alert and oriented X 3, 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, No motor deficit, No sensory deficit, Normal speech Eye Opening: Spontaneous Motor: Obeys Commands Verbal: Oriented GCS Score: 15 - Psych Psych: Normal mood, Normal affect Results - Vitals Vitals: Vital Signs - 24 hr 07/10/18 07/10/18 07/10/18 09:39 11:51 13:42 Temperature 36.3 C L Heart Rate 90 86 96 Respiratory 20 18 18 Rate Blood Pressure 126/66 136/92 H 133/96 H O2 Saturation 98 98 96 07/10/18 14:59 Temperature Heart Rate 92 Respiratory 18 Rate Blood Pressure 133/94 H O2 Saturation 98 Oxygen O2 Source Room air - EKG (time done) 1001 Rate: Rate (enter#) (66) Rhythm: NSR Ischemia: Normal ST segments Compare to prior EKG: Old EKG unavailable Computer interpretation: Agree with computer - Labs Labs: Laboratory Tests 07/10/18 07/10/18 07/10/18 10:35 10:35 10:35 WBC 9.2 RBC 3.77 L Hgb 12.8 Hct 37.5 MCV 99.4 H MCH 33.9 H MCHC 34.1 RDW 14.9 Plt Count 131 MPV 7.0 L Neut # (Auto) 6.3 Lymph # (Auto) 2.3 [place] # (Auto) 0.5 Eos # (Auto) 0.1 Baso # (Auto) 0.1 Absolute Nucleated RBC 0.01 Nucleated RBC % 0.1 Sodium 142 Potassium 3.5 Chloride 105 Carbon Dioxide 25 Anion Gap 12.0 BUN 18 Creatinine 0.5 Estimated GFR (MDRD) 123 Glucose 93 Calcium 7.9 L Total Bilirubin 0.6 AST 37 ALT 21 Alkaline Phosphatase 55 Troponin I < 0.04 Total Protein 6.4 L Albumin 3.6 Globulin 2.8 Albumin/Globulin Ratio 1.3 Lipase 105 H Urine Color Urine Clarity Urine pH Ur Specific [place] Urine Protein Urine Glucose (UA) Urine Ketones Urine Occult Blood Urine Nitrite Urine Bilirubin Urine Urobilinogen Ur Leukocyte Esterase Urine RBC Urine WBC Ur Squamous Epith Cells Urine Bacteria Ur Microscopic Review Urine Culture Comments Urine Opiates Screen Ur Oxycodone Screen Urine Methadone Screen Ur Propoxyphene Screen Ur Barbiturates Screen Ur Tricyclics Screen Ur Phencyclidine Scrn Ur Amphetamine Screen U Methamphetamines Scrn U Benzodiazepines Scrn Urine Cocaine Screen U Cannabinoids Screen Ethyl Alcohol 309.1 07/10/18 10:50 WBC RBC Hgb Hct MCV MCH MCHC RDW Plt Count MPV Neut # (Auto) Lymph # (Auto) [place] # (Auto) Eos # (Auto) Baso # (Auto) Absolute Nucleated RBC Nucleated RBC % Sodium Potassium Chloride Carbon Dioxide Anion Gap BUN Creatinine Estimated GFR (MDRD) Glucose Calcium Total Bilirubin AST ALT Alkaline Phosphatase Troponin I Total Protein Albumin Globulin Albumin/Globulin Ratio Lipase Urine Color YELLOW Urine Clarity CLOUDY Urine pH 7.0 Ur Specific [place] 1.015 Urine Protein 30 H Urine Glucose (UA) NEGATIVE Urine Ketones NEGATIVE Urine Occult Blood SMALL H Urine Nitrite POSITIVE H Urine Bilirubin NEGATIVE Urine Urobilinogen 0.2 (NORMAL) Ur Leukocyte Esterase LARGE H Urine RBC 6-10 H Urine WBC >25 H Ur Squamous Epith Cells RARE Squamous Urine Bacteria Many H Ur Microscopic Review INDICATED Urine Culture Comments INDICATED Urine Opiates Screen NEGATIVE Ur Oxycodone Screen POSITIVE H Urine Methadone Screen NEGATIVE Ur Propoxyphene Screen NEGATIVE Ur Barbiturates Screen NEGATIVE Ur Tricyclics Screen NEGATIVE Ur Phencyclidine Scrn NEGATIVE Ur Amphetamine Screen NEGATIVE U Methamphetamines Scrn NEGATIVE U Benzodiazepines Scrn NEGATIVE Urine Cocaine Screen NEGATIVE U Cannabinoids Screen POSITIVE H Ethyl Alcohol PD MEDICAL DECISION MAKING - ED course Complexity details: reviewed results, re-evaluated patient, considered differential, d/w patient, d/w family ED course: 68-year-old alcoholic female down in her home is administered saline and a banana bag and a gram of Rocephin. She requests to go home and after evaluation by the clinical social work therapist the patient is released to the care of her neighbor. The patient does begin to shake as she sayra and I have discussed with her the use of Ativan or tapering her drinking. She would prefer to taper her drinking. Her is expected to be back in town tomorrow and the patient has support of neighbors and friends. Departure - Departure Disposition: 01 Home, Self Care Clinical Impression: Dehydration Alcohol intoxication Qualifiers: Complication of substance-induced condition: with delirium Qualified Code(s): F10.921 - Alcohol use, unspecified with intoxication delirium Alcohol withdrawal Qualifiers: Complication of substance-induced condition: uncomplicated Qualified Code(s): F10.230 - Alcohol dependence with withdrawal, uncomplicated Condition: Stable Instructions: ED Withdrawal Alcohol, ED Dehydration, ED Alcohol Intoxication Follow-Up: Kings Arriaza MD [Primary Care Provider] - Prescriptions: Nitrofurantoin Monohyd/M-Cryst [Macrobid 100 mg Capsule] 100 mg PO BID #10 capsule Discharge Date/Time: 07/10/18 15:00
[2018-07-10] MEDS ORDERED: SODIUM CHLORIDE 0.9% 1,000 ML IV ONE (10:13)
[2018-07-10 10:45] LABS: BASOPHILS # (AUTO) 0.1 10^3/uL (0.0-0.1); BASOPHILS % (AUTO) 0.6 %; EOSINOPHILS # (AUTO) 0.1 10^3/uL (0.0-0.7); EOSINOPHILS % (AUTO) 0.9 %; HGB - HEMOGLOBIN 12.8 g/dL (12.0-16.0); LYMPHOCYTES # (AUTO) 2.3 10^3/uL (1.5-3.5); LYMPHOCYTES % (AUTO) 25.4 %; MEAN CORPUSCULAR HEMOGLOBIN 33.9 pg (27.0-31.0); MEAN CORPUSCULAR HGB CONC 34.1 g/dL (32.0-36.0); MEAN CORPUSCULAR VOLUME 99.4 fL (81.0-99.0); MONOCYTES # (AUTO) 0.5 10^3/uL (0.0-1.0); MONOCYTES % (AUTO) 5.3 %; NEUTROPHILS # (AUTO) 6.3 10^3/uL (1.5-6.6); NEUTROPHILS % (AUTO) 67.8 %; PLT - PLATELET COUNT 131 10^3/uL (130-450); RED BLOOD COUNT 3.77 10^6/uL (4.20-5.40); RED CELL DISTRIBUTION WIDTH 14.9 % (12.0-15.0); WHITE BLOOD COUNT 9.2 x10^3/uL (4.8-10.8)
[2018-07-10] MEDS ORDERED: FOLIC ACID INJ 1 MG, THIAMINE INJ 100 MG, MAGNESIUM SULFATE 2 GM, MULTIVITAMIN 10 ML in... IV STA ×5 (10:49)
[2018-07-10 10:59] LABS: ALBUMIN 3.6 g/dL (3.2-5.5); ALBUMIN/GLOBULIN RATIO 1.3 (1.0-2.2); BILIRUBIN,TOTAL 0.6 mg/dL (0.2-1.0); CALCIUM 7.9 mg/dL (8.5-10.3); CREATININE 0.5 mg/dL (0.4-1.0); TOTAL PROTEIN 6.4 g/dL (6.7-8.2)
[2018-07-10 11:08] LABS: MUDS CUTOFF CONCENTRATIONS CUTOFF CONC BELOW:
[2018-07-10 11:12] LABS: BILIRUBIN,URINE NEGATIVE (NEGATIVE); GLUCOSE, URINE (UA) NEGATIVE (NEGATIVE); KETONES,URINE (UA) NEGATIVE (NEGATIVE); LEUKOCYTE ESTERASE, URINE LARGE (NEGATIVE); NITRITE,URINE POSITIVE (NEGATIVE); OCCULT BLOOD,URINE SMALL (NEGATIVE); PROTEIN,URINE 30 mg/dL (NEGATIVE); UROBILINOGEN,URINE 0.2 (NORMAL) E.U./dL (NORMAL)
[2018-07-10 11:21] LABS: CLARITY,URINE CLOUDY (CLEAR)
[2018-07-10 11:22] LABS: BACTERIA,URINE Many /HPF (None Seen); SQUAMOUS EPITHELIAL CELL,UR RARE Squamous (<= Few)
[2018-07-10 11:25] LABS: AMPHETAMINE SCREEN,URINE NEGATIVE (NEGATIVE); BENZODIAZEPINES SCREEN, URINE NEGATIVE (NEGATIVE); COCAINE SCREEN URINE NEGATIVE (NEGATIVE); METHADONE SCREEN, URINE NEGATIVE (NEGATIVE); METHAMPHETAMINES SCREEN, URINE NEGATIVE (NEGATIVE); OPIATE SCREEN, URINE NEGATIVE (NEGATIVE); OXYCODONE SCREEN, URINE POSITIVE (NEGATIVE); TRICYCLIC ANTIDEPRESSANT,URINE NEGATIVE (NEGATIVE)
[2018-07-10 11:26] LABS: PROPOXYPHENE SCREEN, URINE NEGATIVE (NEGATIVE)
[2018-07-10] MEDS ORDERED: cefTRIAXone 1 GM in SODIUM CHLORIDE 0.9% MINIBAG 100 ML IV STA (11:31)
[2018-07-10] MEDS ORDERED: ONDANSETRON 4 MG/2 ML VIAL IVP STA (12:05)
[2018-07-10 14:59] VITALS: BP 133/94
== END 2018-07-10 15:00 | disposition home or self-care (01) ==
LOC: EDUNIT# → ED 09:36
DX: F10.231 Alcohol dependence with withdrawal delirium (principal); F10.229 Alcohol dependence with intoxication, unspecified; Y90.8 Blood alcohol level of 240 mg/100 ml or more; E86.0 Dehydration; I10 Essential (primary) hypertension
CPT/HCPCS: 36415; 80053; 81001; 83690; 84484; 85025; 87086; 87181; 93005; 96365; 96367; 96375; 99283; 99284; J3411; 80306; 80320; 81003

== ENCOUNTER 2018-09-11 10:08 | Outpatient (CLI) | payer MEDICARE ==
--- NOTE | 2018-09-12 09:02 | Mammography Report ---
Reason: SCREENING MAMMO Procedure Date: 09/11/2018 Accession Number: [id number] / [id number] Procedure: TONY - Screening Mammo Impl w/Dennis CPT Code: FULL RESULT: EXAM: Screening Mammo Impl w/Dennis DATE: 09/11/2018 10:48 AM CLINICAL HISTORY: Screening encounter. History of bilateral retropectoral saline implants, placed 1984. TECHNIQUE: (B) - Bilateral CC and MLO views were obtained. All views were performed in implant displaced and standard fashion. COMPARISON: 05/29/2016 through 09/24/2008. PARENCHYMAL PATTERN: (D) - The breast(s) demonstrate(s) heterogeneously dense fibroglandular parenchyma. FINDINGS: There are coarse typically benign calcifications. Bilateral saline implants appear intact. There are no suspicious masses, calcifications, or areas of distortion. IMPRESSION: Benign findings. BI-RADS category 2. RECOMMENDATION: (ANNUAL) - Recommend routine annual screening mammography. BI-RADS CATEGORY: (2) - Benign Findings. STANDARD QUALIFYING STATEMENTS: 1. This examination was not reviewed with the aid of Computer-Aided Detection (CAD). 2. A negative or benign imaging report should not preclude biopsy if clinically suspicious findings are present. 3. Dense breasts may obscure an underlying neoplasm. 4. This examination was reviewed with the aid of 3D breast imaging (tomosynthesis).
== END 2018-09-11 10:09 | disposition home or self-care (01) ==
LOC: DI 10:08
PROVIDERS: ATTEND Family Medicine
DX: Z12.31 Encounter for screening mammogram for malignant neoplasm of breast (principal); Z98.82 Breast implant status
CPT/HCPCS: 77063; 77067

== ENCOUNTER 2019-02-21 09:51 | Outpatient (CLI) | payer MEDICARE ==
--- NOTE | 2019-02-21 16:52 | DEXA Report ---
Reason: ASYMPTOMATIC MENOPAUSAL STATE Procedure Date: 02/21/2019 Accession Number: [id number] / [id number] Procedure: DEX - Dexa Spine and/or Hip CPT Code: Final Report FULL RESULT: EXAM: Dexa Spine and/or Hip DATE: 02/21/2019 10:24 AM CLINICAL HISTORY: POSTMENOPAUSAL TECHNIQUE: Dual energy x-ray absorptiometry (DXA) was performed on a [employer] System. Regions measured are the AP Spine, femoral neck, and if needed forearm. L4 excluded due to posterior instrumented fusion. COMPARISON: None. In accordance with the International Society for Clinical Densitometry (ISCD) guidelines, data from previous exams may be reanalyzed using current recommendations and techniques. This is done to allow a more accurate basis for comparison with the current study. FINDINGS: The data for the lumbar spine is as follows: BMD (g/cm/cm) T-SCORE Z-SCORE REGION L1 0.826 -2.5 -0.8 L2 1.028 -1.4 0.3 L3 1.197 0.0 1.7 L4 0.0 0.0 0.0 TOTAL L1-L3 1.009 -1.3 0.4 NOTE: All evaluable vertebrae are used for classification The data for the hip is as follows: BMD (g/cm/cm) T-SCORE Z-SCORE REGION Neck 0.922 -0.8 0.8 TOTAL 1.021 0.1 1.5 NOTE: The femoral neck or total proximal femur, whichever is lowest, is used for classification. IMPRESSION: THE WHO CLASSIFICATION BASED ON THE INTERNATIONAL REFERENCE STANDARD IS OSTEOPENIA, REFERENCE LUMBAR SPINE. THE FRACTURE RISK IS INCREASED. RECOMMENDATION: Patients with diagnosis of osteoporosis or osteopenia should have regular bone mineral density assessment. For those eligible for Medicare, routine testing is allowed once every 2 years. Testing frequency can be increased for patients who have rapidly progressing disease or for those who are receiving medical therapy to restore bone mass. COMMENT: World Health Organization (WHO) definitions for osteoporosis and osteopenia: NORMAL BMD: T-score at -1.0 or higher, fracture risk is low OSTEOPENIA BMD: T-score between -1.0 and -2.5, fracture risk is increased. OSTEOPOROSIS BMD: T-score at -2.5 or lower, fracture risk is high. National Osteoporosis Foundation recommends: 1. Obtain adequate dietary calcium (at least 1200 mg per day) and vitamin D (400-800 international units per day). 2. Participate, as appropriate, in regular weightbearing and muscle-strengthening exercise. 3. Avoid tobacco use and reduce alcohol and caffeine intake. 4. For more detailed information see the website at www.NOF.org.
== END 2019-02-21 09:52 | disposition home or self-care (01) ==
LOC: DI 09:51
PROVIDERS: ATTEND Family Medicine
DX: M85.88 Other specified disorders of bone density and structure, other site (principal)
CPT/HCPCS: 77080

== ENCOUNTER 2019-11-26 12:54 | Outpatient (CLI) | payer MEDICARE ==
--- NOTE | 2019-11-26 13:18 | CT Report ---
PROCEDURE: HEAD WO INDICATIONS: Headache TECHNIQUE: Noncontrast 4.5 mm thick angled axial sections acquired from the foramen magnum to the vertex. For r adiation dose reduction, the following was used: automated exposure control, adjustment of mA and/or kV according to patient size. COMPARISON: None. FINDINGS: Image quality: Excellent. CSF spaces: Basal cisterns are patent. No extra-axial fluid collections. Ventricles are normal in size and shape. Brain: No midline shift. No intracranial masses or hemorrhage. Adams-white matter interface is norm al. Skull and face: Calvarium and visualized facial bones are intact, without suspicious lesions. Sinuses: Visualized sinuses and mastoids are clear. IMPRESSION: No acute finding. Reviewed by: Rich Holder MD on 11/26/2019 1:17 PM PDT Approved by: Rcih Holder MD on 11/26/2019 1:17 PM PDT Station ID: [id number]
== END 2019-11-26 12:55 | disposition home or self-care (01) ==
LOC: DI 12:54
PROVIDERS: ATTEND Family Medicine
DX: R51 Headache (principal)
CPT/HCPCS: 70450

== ENCOUNTER 2020-07-13 04:47 | Outpatient (CLI) | payer MEDICARE | END 2020-07-13 04:48 | disposition critical access hospital (66) | LOC: EMS 04:47 | PROVIDERS: ATTEND Emergency Medicine | DX: R11.2 Nausea with vomiting, unspecified (principal) | CPT/HCPCS: A0425; A0427 ==

== ENCOUNTER 2020-07-13 05:08 | Emergency (ER) | payer MEDICARE ==
--- NOTE | 2020-07-13 05:13 | ED Physician Documentation ---
PD HPI NVD - Stated complaint Stated Complaint: N/V - History obtained from History obtained from: Patient, EMS - History of Present Illness Timing - onset: Yesterday Timing - details: Gradual onset Pain level now: 6 Associated symptoms: Dizzy (with standing/ambulating). No: Fever Improved by: Meds (improved with IV fluids and zofran given en route by medics) Worsened by: Eating Recently seen: Not recently seen - Additonal information Additional information: BIBA. patient c/o nausea and vomiting since yesterday that has progressed to the point of not being able to tolerate any PO this morning. She improved with IV fluids (400cc NS) and IV zofran (4mg) given by medics en route. She also c/o several months of right flank pain, waxing and waning without apparent inciting or ameliorating factors. Medics note that when she stood to get onto the stretcher she c/o dizziness/lightheadedness. She self-catheterizes several times/day. Review of Systems Constitutional: denies: Fever, Chills, Sweats Cardiac: reports: Reviewed and negative Respiratory: reports: Reviewed and negative GI: reports: Abdominal Pain, Nausea, Vomiting. 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 : Retention, Incontinence, Frequency, Other HEENT: Chronic vision loss, Chronic sinusitis Psych: Depression, Anxiety, Claustrophobia Musculoskeletal: Osteoarthritis, Other Derm: None - Past Surgical History Past Surgical History: Yes General: Colonoscopy, EGD Ortho: Other Cardiovascular: Cardiac catheterization, Angioplasty - Present Medications Home Medications: Ambulatory Orders Medication Instructions Recorded Confirmed Escitalopram [Lexapro] 10 mg PO DAILY 07/13/20 07/13/20 Gabapentin [Neurontin] 300 mg PO Q4HR 07/13/20 07/13/20 Meloxicam [Mobic] 1 tablet PO DAILY PRN 07/13/20 07/13/20 Oxycodone HCl/Acetaminophen 1 each PO Q6HR PRN 07/13/20 07/13/20 [Percocet 5-325 mg Tablet] Pantoprazole [Protonix] 40 mg PO DAILY 07/13/20 07/13/20 Simvastatin [Zocor] 40 mg PO DAILY 07/13/20 07/13/20 buPROPion HCL [Bupropion HCl Sr] 150 mg PO BID 07/13/20 07/13/20 busPIRone [Buspar] 5 mg PO BID 07/13/20 07/13/20 predniSONE [Deltasone] 10 mg PO DAILY 07/13/20 07/13/20 - Allergies Allergies/Adverse Reactions: Allergies Allergy/AdvReac Type Severity Reaction Status Date / Time codeine Allergy Unknown Verified 07/13/20 05:19 doxycycline Allergy Respiratory Verified 07/13/20 05:19 Penicillins Allergy Unknown Verified 07/13/20 05:19 Sulfa (Sulfonamide Allergy Unknown Verified 07/13/20 05:19 Antibiotics) - Social History Does the pt smoke?: No Smoking Status: Never smoker Does the pt drink ETOH?: No Does the pt have substance abuse?: No - Immunizations Immunizations are current?: Yes - POLST Patient has POLST: No POLST Status: Full Code PD ED PE NORMAL - Vitals Vital signs reviewed: Yes - General General: Alert and oriented X 3, No acute distress, Well developed/nourished - HEENT HEENT: Moist mucous membranes - Neck Neck: Supple, no meningeal sign - Cardiac Cardiac: RRR - Respiratory Respiratory: No respiratory distress, Clear bilaterally - Abdomen Abdomen: Soft, Non distended, Other (mild diffuse tenderness without rebound or guarding) - Back Back: No CVA TTP - Derm Derm: Normal color, Warm and dry - Extremities Extremities: No edema - Neuro Neuro: Alert and oriented X 3 Results - Vitals Vitals: Vital Signs - 24 hr 07/13/20 05:10 Temperature 36.2 C L Heart Rate 90 Respiratory 18 Rate Blood Pressure 154/88 H O2 Saturation 97 Oxygen O2 Source Room air - Labs Labs: Laboratory Tests 07/13/20 07/13/20 07/13/20 05:24 05:24 06:00 WBC 12.1 H RBC 4.81 Hgb 14.6 Hct 44.5 MCV 92.5 MCH 30.4 MCHC 32.8 RDW 13.8 Plt Count 412 MPV 8.9 Neut # (Auto) 8.1 H Lymph # (Auto) 3.4 [place] # (Auto) 0.5 Eos # (Auto) 0.0 Baso # (Auto) 0.1 Absolute Nucleated RBC 0.00 Nucleated RBC % 0.0 Sodium 141 Potassium 4.2 Chloride 100 L Carbon Dioxide 22 Anion Gap 19.0 H BUN 24 H Creatinine 0.8 Estimated GFR (MDRD) 71 L Glucose 116 H Calcium 9.4 Total Bilirubin 0.7 AST 21 ALT 17 Alkaline Phosphatase 62 Total Protein 8.6 H Albumin 4.1 Globulin 4.5 H Albumin/Globulin Ratio 0.9 L Lipase 56 H Urine Color YELLOW Urine Clarity SL. CLOUDY Urine pH 6.0 Ur Specific [place] >=1.030 H Urine Protein >=300 H Urine Glucose (UA) NEGATIVE Urine Ketones NEGATIVE Urine Occult Blood SMALL H Urine Nitrite NEGATIVE Urine Bilirubin NEGATIVE Urine Urobilinogen 0.2 (NORMAL) Ur Leukocyte Esterase NEGATIVE Urine RBC 0-5 Urine WBC 11-25 H Ur Squamous Epith Cells FEW Squamous Urine Bacteria Moderate H Ur Microscopic Review INDICATED Urine Culture Comments INDICATED Ethyl Alcohol 148.8 PD MEDICAL DECISION MAKING - ED course Complexity details: reviewed old records, reviewed results, re-evaluated patient, considered differential, d/w patient ED course: I d/w patient plan for blood tests and CT A/P, as well as UA. She says she feels her bladder is full and that she self-catheterizes. I ordered I+O cath for UA specimen. She asks for something for her right flank/back pain, and toradol is given IV. CT A/P ordered due to abdominal tenderness with nausea, vomiting; differential includes, but not limited to, SBO, appendicitis, renal colic, biliary colic, diverticulitis. Blood tests resulted but before CT could be undertaken, I was informed by ED staff interpreter that patient had become very upset with the catheter options presented to her, and that she was insisting on leaving. She also was refusing to have a second IV placed (the first IV was inappropriate for IV contrast). I reassessed patient and she is insisting on leaving immediately. She is standing at bedside gathering her belongings. She wishes to sign the AMA form and does not want to discuss what made her upset, but she does not express anger with me when we are discussing the AMA form. I encouraged her to return at any time she wishes to be reevaluated. Departure - Departure Disposition: 07 Against Medical Advice Clinical Impression: Vomiting Qualifiers: Vomiting type: unspecified Vomiting Intractability: unspecified Nausea presence: with nausea Qualified Code(s): R11.2 - Nausea with vomiting, unspecified Abdominal pain Qualifiers: Abdominal location: generalized Qualified Code(s): R10.84 - Generalized abdominal pain Condition: Good Discharge Date/Time: 07/13/20 06:21
[2020-07-13] MEDS ORDERED: SODIUM CHLORIDE 0.9% 1,000 ML IV STA (05:16)
[2020-07-13 05:18] VITALS: BP 154/88
[2020-07-13 05:28] LABS: BASOPHILS # (AUTO) 0.1 10^3/uL (0.0-0.1); BASOPHILS % (AUTO) 0.4 %; EOSINOPHILS % (AUTO) 0.1 %; HCT - HEMATOCRIT 44.5 % (37.0-47.0); HGB - HEMOGLOBIN 14.6 g/dL (12.0-16.0); LYMPHOCYTES # (AUTO) 3.4 10^3/uL (1.5-3.5); LYMPHOCYTES % (AUTO) 27.8 %; MEAN CORPUSCULAR HEMOGLOBIN 30.4 pg (27.0-31.0); MEAN CORPUSCULAR HGB CONC 32.8 g/dL (32.0-36.0); MEAN CORPUSCULAR VOLUME 92.5 fL (81.0-99.0); MEAN PLATELET VOLUME 8.9 fL (7.9-10.8); MONOCYTES # (AUTO) 0.5 10^3/uL (0.0-1.0); MONOCYTES % (AUTO) 4.1 %; NEUTROPHILS # (AUTO) 8.1 10^3/uL (1.5-6.6); PLT - PLATELET COUNT 412 10^3/uL (130-450); RED BLOOD COUNT 4.81 10^6/uL (4.20-5.40); RED CELL DISTRIBUTION WIDTH 13.8 % (12.0-15.0); WHITE BLOOD COUNT 12.1 x10^3/uL (4.8-10.8)
[2020-07-13 05:38] LABS: ALBUMIN 4.1 g/dL (3.2-5.5); ALBUMIN/GLOBULIN RATIO 0.9 (1.0-2.2); BILIRUBIN,TOTAL 0.7 mg/dL (0.2-1.0); CALCIUM 9.4 mg/dL (8.5-10.3); CREATININE 0.8 mg/dL (0.4-1.0); ETOH - ETHANOL 148.8 mg/dL; POTASSIUM 4.2 mmol/L (3.5-5.0); TOTAL PROTEIN 8.6 g/dL (6.7-8.2)
[2020-07-13] MEDS ORDERED: KETOROLAC 30 MG/ML VIAL IVP STA (05:45)
[2020-07-13] MEDS ORDERED: PANTOPRAZOLE 40 MG VIAL IVP STA (05:47)
[2020-07-13] MEDS ORDERED: IOVERSOL 320 100 ML VIAL IVP ONE (06:11)
[2020-07-13 06:38] LABS: BILIRUBIN,URINE NEGATIVE (NEGATIVE); GLUCOSE, URINE (UA) NEGATIVE (NEGATIVE); KETONES,URINE (UA) NEGATIVE (NEGATIVE); LEUKOCYTE ESTERASE, URINE NEGATIVE (NEGATIVE); NITRITE,URINE NEGATIVE (NEGATIVE); OCCULT BLOOD,URINE SMALL (NEGATIVE); PROTEIN,URINE >=300 mg/dL (NEGATIVE); UROBILINOGEN,URINE 0.2 (NORMAL) E.U./dL (NORMAL)
[2020-07-13 06:44] LABS: CLARITY,URINE SL. CLOUDY (CLEAR)
[2020-07-13 06:54] LABS: BACTERIA,URINE Moderate /HPF (None Seen); RBC,URINE 0-5 /HPF (0-5); SQUAMOUS EPITHELIAL CELL,UR FEW Squamous (<= Few)
== END 2020-07-13 06:21 | disposition left against medical advice (07) ==
LOC: EDUNIT# → ED 05:08
DX: R11.2 Nausea with vomiting, unspecified (principal); R10.84 Generalized abdominal pain; I10 Essential (primary) hypertension; Z53.29 Procedure and treatment not carried out because of patient's decision for other reasons
CPT/HCPCS: 36415; 80053; 81001; 83690; 85025; 87086; 87181; 96374; 96375; 99284; G0480; 80320; 81003

== ENCOUNTER 2020-07-16 10:38 | Outpatient (CLI) | payer MEDICARE ==
[2020-07-16] MEDS ORDERED: IOPAMIDOL-300 50 ML VIAL ONE (11:07)
[2020-07-16] MEDS ORDERED: IOVERSOL 320 100 ML VIAL IVP ONE ×2 (11:07→12:48)
--- NOTE | 2020-07-16 12:36 | CT Report ---
PROCEDURE: Abdomen/Pelvis W INDICATIONS: PANCREATITIS TECHNIQUE: After the administration of intravenous contrast, 5 mm thick sections acquired from the diaphragms to the symphysis. 2.5 mm thick coronal and sagittal reformats were acquired. Optional 10-minute delay ed imaging may be performed from the kidneys to the bladder. For radiation dose reduction, the follo wing was used: automated exposure control, adjustment of mA and/or kV according to patient size. COMPARISON: FINDINGS: Image quality: Excellent. ABDOMEN: Lung bases: Lung bases are clear. Heart size is normal. No pericardial effusion. Inferior ribs ar e intact. No basal pleural effusions or pneumothorax. Solid organs: Liver is normal in size and enhancement, without lacerations. Gallbladder is contract ed and no internal calcified gallstones are found.. Biliary system is non-dilated. Pancreas enhance s normally, without transection. Spleen is normal in size and enhancement, without lacerations. No adrenal hematomas. Both kidneys enhance normally, without hydronephrosis or lacerations. Peritoneum and bowel: No free fluid or air. Unenhanced bowel loops demonstrate normal wall thicknes s and caliber. Nodes and vessels: No retroperitoneal or mesenteric adenopathy. Aorta and inferior vena cava are no rmal in size and enhancement. Miscellaneous: No ventral hernias. PELVIS: Genitourinary: Bladder wall thickness is normal. Miscellaneous: No inguinal hernias or adenopathy. Bones: Pelvic ring and hip joints appear intact. No vertebral compression fractures. IMPRESSION: There is no evidence of biliary distention or calcified gallstone within the gallbladder or bile ducts. The pancreas itself shows no evidence of current pancreatic necrosis or peripancreati c inflammation. Mild to moderate pancreatitis may not show detectable CT abnormalities. Reviewed by: Amadou Briones MD on 07/16/2020 12:34 PM PDT Approved by: Amadou Briones MD on 07/16/2020 12:34 PM PDT Station ID: [id number]
== END 2020-07-16 10:39 | disposition home or self-care (01) ==
LOC: DI 10:38
PROVIDERS: ATTEND Family Medicine
DX: K85.90 Acute pancreatitis without necrosis or infection, unspecified (principal)
CPT/HCPCS: 74177; Q9967

== ENCOUNTER 2020-08-25 11:56 | Day surgery (SDC) | payer MEDICARE ==
[2020-08-25] MEDS ORDERED: LACTATED RINGERS 1,000 ML IV ONE ×2 (12:05→14:11)
[2020-08-25] MEDS ORDERED: ceFAZolin 2 GM/50 ML 2 GM/50 ML BAG IV ONE (12:47)
[2020-08-25] MEDS ORDERED: ATROPINE ABBOJECT 1 MG/10 ML SYRINGE IVP PRN (12:50)
[2020-08-25] MEDS ORDERED: MORPHINE 2 MG/ML CARPUJECT IVP PRN (12:50)
[2020-08-25] MEDS ORDERED: NALOXONE 0.4 MG/ML VIAL IVP PRN (12:50)
[2020-08-25] MEDS ORDERED: HYDROmorphone 0.5 MG/0.5 ML SYRINGE IVP PRN ×2 (12:50→14:21)
[2020-08-25] MEDS ORDERED: ONDANSETRON 4 MG/2 ML VIAL IVP PRN ×2 (12:50→14:21)
[2020-08-25] MEDS ORDERED: ePHEDrine 50 MG/ML VIAL IVP PRN (12:50)
[2020-08-25] MEDS ORDERED: fentaNYL 100 MCG/2 ML VIAL IVP PRN (12:50)
[2020-08-25] MEDS ORDERED: METOCLOPRAMIDE 10 MG/2 ML VIAL IVP PRN (12:50)
--- NOTE | 2020-08-25 12:50 | ANESTHESIA ---
Pre-Anesthesia VS, & Labs - Diagnosis giant cell arteritis - Procedure Bilateral Temporal Artery Biopsy Vital Signs: Temp Pulse Resp BP Pulse Ox 36.5 C 50 L 18 169/84 H 98 08/25/20 12:25 08/25/20 12:25 08/25/20 12:25 08/25/20 12:25 08/25/20 12:25 Height: 5 ft 2.5 in Weight (kg): 63 kg Body Mass Index: 25.0 BMI Classification: Overweight - NPO >8 hours - Is Patient ?: No - Lab Results Lab results reviewed: Yes Home Medications and Allergies Escitalopram [Lexapro] 10 mg PO DAILY 07/13/20 Gabapentin [Neurontin] 300 mg PO BID 07/13/20 Meloxicam [Mobic] 1 tablet PO DAILY PRN 07/13/20 Oxycodone HCl/Acetaminophen [Percocet 5-325 mg Tablet] 1 each PO Q6HR PRN 07/13/20 Pantoprazole [Protonix] 40 mg PO DAILY 07/13/20 Simvastatin [Zocor] 40 mg PO DAILY 07/13/20 buPROPion HCL [Bupropion HCl Sr] 150 mg PO BID 07/13/20 busPIRone [Buspar] 5 mg PO BID 07/13/20 predniSONE [Deltasone] 10 mg PO DAILY 07/13/20 Allergies/Adverse Reactions: Allergies Allergy/AdvReac Type Severity Reaction Status Date / Time codeine Allergy Unknown Verified 07/13/20 05:19 doxycycline Allergy Respiratory Verified 07/13/20 05:19 Penicillins Allergy Unknown Verified 07/13/20 05:19 Sulfa (Sulfonamide Allergy Unknown Verified 07/13/20 05:19 Antibiotics) Anes History & Medical History - Anesthetic History Anesthesia Complications: reports: No previous complications Family history of Anesthesia Complications: Denies Family history of Malignant Hyperthermia: Denies - Medical History Cardiovascular: reports: Hypertension, High cholesterol, Coronary artery disease, Murmur, Other Pulmonary: reports: COPD, Emphysema, Pneumonia, Shortness of breath Gastrointestinal: reports: GERD, Colon polyps Urinary: reports: Retention, Incontinence, Frequency, Other Neuro: reports: Head injury, Headaches, Migraines Musculoskeletal: reports: Osteoarthritis, Other Endocrine/Autoimmune: reports: Other (polymyalgia rheumatica) Blood Disorders: reports: None Skin: reports: None Smoking Status: Never smoker - Surgical History General: reports: Colonoscopy, EGD Cardiothoracic: reports: Cardiac catheterization, Angioplasty Orthopedic: reports: Other Exam General: Alert, Oriented x3, Cooperative, No acute distress Dental: Dentures full Upper, Dentures full Lower Mouth Openin Fingerbreadth Neck Mobility: Normal Mallampati classification: I Respiratory: Lungs clear, Normal breath sounds, No respiratory distress, No accessory muscle use Cardiovascular: Regular rate Plan Anesthesia Type: MAC Consent for Procedure(s) Verified and Reviewed: Yes Code Status: Attempt Resuscitation ASA classification: 3-Severe systemic disease Is this case an emergency?: No
[2020-08-25] MEDS ORDERED: LACTATED RINGERS 1,000 ML IV SCH (13:00)
[2020-08-25] MEDS ORDERED: BUPIVACAINE 0.5% PF 30 ML VIAL ONE (13:06)
[2020-08-25] MEDS ORDERED: PROPOFOL 200 MG/20 ML VIAL IVP ONE (13:08)
[2020-08-25] MEDS ORDERED: MIDAZOLAM 2 MG/2 ML VIAL ONE (13:08)
[2020-08-25] MEDS ORDERED: fentaNYL 100 MCG/2 ML VIAL ONE (13:08)
[2020-08-25] MEDS ORDERED: LIDOCAINE-MPF 2% 5 ML VIAL ONE (13:08)
[2020-08-25 13:17] LABS: B. PARAPERTUSSIS- RESP PCR PAN NOT DETECTED; B. PERTUSSIS- RESP PCR PANEL NOT DETECTED; C. PNEUMONIAE- RESP PCR PANEL NOT DETECTED; CORONAVIRUS 229E-RESP PCR NOT DETECTED; CORONAVIRUS HKU1-RESP PCR NOT DETECTED; CORONAVIRUS NL63-RESP PCR NOT DETECTED; CORONAVIRUS OC43-RESP PCR NOT DETECTED; HUMAN METAPNEUMOVIRUS NOT DETECTED; INFLUENZA A- RESP PCR PANEL NOT DETECTED; INFLUENZA B - RESP PCR PANEL NOT DETECTED; M. PNEUMONIAE- RESP PCR PANEL NOT DETECTED; PARAINFLUENZA VIRUS 1 NOT DETECTED; PARAINFLUENZA VIRUS 2 NOT DETECTED; PARAINFLUENZA VIRUS 3 NOT DETECTED; PARAINFLUENZA VIRUS 4 NOT DETECTED; RHINOVIRUS/ENTEROVIRUS NOT DETECTED; RSV- RESP PCR PANEL NOT DETECTED; SARS-CoV-2 -RESP PCR PANEL NOT DETECTED
[2020-08-25] MEDS ORDERED: BUPIVACAINE 0.5% PF 30 ML VIAL INFIL ONE (13:57)
--- NOTE | 2020-08-25 14:11 | OPERATIVE REPORT ---
Operative Report - General Procedure Date: 08/25/20 Planned Procedure: LEFT temporal artery biopsy Pre-Op Diagnosis: Temporal arteritis (ICD 10 M31.6) Procedure Performed: LEFT temporal artery biopsy CPT 68826) Post Op Diagnosis: Same - Procedure Note Primary Surgeon: Dennis Beltran MD Anesthesia Provider: Caro Calderon CRNA Anesthesia Technique: Local (3 mL 1/2% marcaine), MAC IV Fluids (mL): 500 Estimated Blood Loss (mL): 5 Drain/Tube Type: Other (None.) Indications: Bitemporal headaches that worsen when the patient has her steroid dose decreased. No optic issues. Complications: None. - Other Other Information/Narrative: After verbal and written informed consent was obtained detailing the operation, the alternatives the operation including no operation, risks of infection, bleeding requiring transfusion with its risks, nerve injury, and and after I met with the patient confirming the surgery and the site of surgery, the patient was brought to the operative suite and placed supine on the operating table. Great care was taken to avoid pressure points to prevent pressure necrosis or nerve injury. Monitoring devices were applied along with TEDs and pneumatic compression stockings (to prevent DVT). The patient received preoperative antibiotics for surgical prophylaxis. Caro Calderon sedated and anesthetized the patient for the entire procedure. The patient was prepped and draped in the usual sterile manner. With the patient draped my initials were clearly visible. A "time in" then confirmed that the patient was identified w ith 3 identifiers (name, birthdate, and medical record number), the history and physical was updated and in the chart, the signed consent confirming the procedure was in the chart, the patient was in the correct position, the aforementioned prophylactic measures were in place or given, we had the correct personnel and equipment to complete the procedure and that anesthesia and the surgical team were given an opportunity to express any concerns. With the agreement of everyone in the room we proceeded with the operation. I attempted to localize the left temporal artery using ultrasound preoperatively but I could not find it using the ultrasound nor could I palpate the artery. As such I anesthetized the area with 3 mL of 1/2% marcaine where the artery typically runs and a 2 cm incision was made using a 15 blade scalpel just in the hairline. Dissection was carried out down through the subcutaneous tissues. The artery was identified in the superior aspect of the incision and was inadve rtently entered as I was clearing it with Bovie electrocautery as well and was a right angle. This was initially clipped using small hemoclips for control. After dissecting a long enough piece for pathology the artery was ligated proximally and distally using a 3-0 Vicryl suture ligature. The specimen was sent off for pathologic evaluation in 2 parts. 1 part had been clamped with a small mosquito for hemostatic control but I still felt that pathology could use additional tissue.At the superior aspect this was also clipped using a small Hemoclip. The wound was then copiously irrigated using warm sterile saline and every attempt was made to try and generate bleeding from the ligated vessel to ensure that once the operation was done there would be no problem. There was no bleeding and the wound was dry. The subcutaneous tissues were approximated using a single 3-0 Vicryl. The skin incision was approximated with 4-0 Monocryl in a subcuticular fashion. The skin was cleaned of its prep and Dermabond was applied. At this point a timeout was performed that confirmed that all counts were correct x2, the procedure that was performed, the blood loss, the IV fluids administered, the patient's condition, and any concerns of the operating team had. Having tolerated the procedure well, the patient was taken recovery room in good and stable condition. The plan is for outpatient discharge when the patient is adequately recovered. This document was created in part using voice recognition technology. Because of the inherent limitations of the system, occasional same sounding word substitutions and grammatical errors do occur and persist despite proofreading. Please read this document for content.
[2020-08-25] MEDS ORDERED: HYDROcod/ACETAM 5/325 MG TABLET PO PRN (14:21)
[2020-08-25 14:55] VITALS: BP 132/85
--- NOTE | 2020-08-25 16:03 | ANESTHESIA POST OP EVALUATION ---
Anesthesia Post Eval - Post Anesthesia Eval Vitals: Last Vital Signs Temp 36.7 C 08/25/20 14:55 Pulse 86 08/25/20 14:55 Resp 19 08/25/20 14:55 BP 132/85 H 08/25/20 14:55 Pulse Ox 97 08/25/20 14:55 CV Function Including HR & BP: Stable Pain Control: Satisfactory Nausea & Vomiting: Negative Mental Status: Baseline Respiratory Status: Airway Patent Hydration Status: Satisfactory Anesthesia Complications: None
== END 2020-08-25 11:57 | disposition home or self-care (01) ==
LOC: SDS 11:56
PROVIDERS: ATTEND Surgery
PROC: 03BT0ZX Excision of Left Temporal Artery, Open Approach, Diagnostic (ICD-10-PCS; principal; 2020-08-25 13:30)
DX: M31.6 Other giant cell arteritis (principal); G43.909 Migraine, unspecified, not intractable, without status migrainosus; I10 Essential (primary) hypertension; J43.9 Emphysema, unspecified; I25.10 Atherosclerotic heart disease of native coronary artery without angina pectoris; M35.3 Polymyalgia rheumatica; R01.1 Cardiac murmur, unspecified; R32 Unspecified urinary incontinence; R33.9 Retention of urine, unspecified; R35.0 Frequency of micturition; Z20.822 Contact with and (suspected) exposure to COVID-19; G89.29 Other chronic pain; F41.9 Anxiety disorder, unspecified; M19.90 Unspecified osteoarthritis, unspecified site; K21.9 Gastro-esophageal reflux disease without esophagitis; E78.5 Hyperlipidemia, unspecified; N31.9 Neuromuscular dysfunction of bladder, unspecified; F32.9 Major depressive disorder, single episode, unspecified; F17.200 Nicotine dependence, unspecified, uncomplicated; F10.11 Alcohol abuse, in remission; E66.3 Overweight; Z68.25 Body mass index [BMI] 25.0-25.9, adult; Z98.1 Arthrodesis status; Z79.52 Long term (current) use of systemic steroids; Z79.899 Other long term (current) drug therapy
CPT/HCPCS: 37609; 87631; J0690; J7120; 0202U

== ENCOUNTER 2021-06-04 10:49 | Outpatient (CLI) | payer MEDICARE ==
--- NOTE | 2021-06-04 21:54 | CT Report ---
PROCEDURE: Low Dose Lung Cancer Screen INDICATIONS: CURRENT SMOKER TECHNIQUE: Noncontrast low-dose images were acquired from the pulmonary apices to the posterior costophrenic ang les. Multiplanar MIP reformats were then acquired. For radiation dose reduction, the following was used: automated exposure control, adjustment of mA and/or kV according to patient size. Prior Cancer: The clinical history provided does not indicate prior malignancy. Prior lung screening CT scan from 05/11/2016 is reviewed Lung Rad: Category 2 Lung Recommendation: Follow-up CT scanning utilizing low-dose noncontrast technique is recommended 1 year. Lung Significant Findings: Mild centrilobular emphysematous change, no evidence for early manifestati on of lung carcinoma found. COMPARISON: 05/11/[address] FINDINGS: Image quality: Excellent. Lungs and pleura: Mild centrilobular emphysematous change. Mediastinum: Heart size is normal. No pericardial effusion. Note is made of mild to moderate coron sherlyn artery calcifications. No mediastinal adenopathy by size criteria. Thoracic aorta and central pu lmonary arteries are normal in size. Esophagus is normal in caliber. No hiatal hernia. Bones and chest wall: No suspicious bony lesions. No vertebral body compression fractures. No axil rm or supraclavicular adenopathy by size criteria. The thyroid is normal in size and there are no incidental findings. Abdomen: Visualized upper abdomen solid organs and bowel loops appear normal in the absence of contr ast. IMPRESSION: Mild centrilobular emphysematous change. No evidence for presence of early manifestation of lung carc inoma. Note is made of mild to moderate coronary artery calcifications. CLINICAL RECOMMENDATION STATEMENTS: In patients <35 years with an ITN detected on CT, MRI, or extrathyroidal ultrasound, the Committee re commends further evaluation with dedicated thyroid ultrasound if the nodule is "e1 cm and has no susp icious imaging features, and if the patient has normal life expectancy. In patients "e35 years with an ITN detected on CT, MRI, or extrathyroidal ultrasound, the Committee r ecommends further evaluation with dedicated thyroid ultrasound if the nodule is "e1.5 cm and has no s uspicious imaging features, and if the patient has normal life expectancy. (ACR, 2014) Reviewed by: Amadou Briones MD on 06/04/2021 9:53 PM PST Approved by: Amadou Briones MD on 06/04/2021 9:53 PM [id number] Station ID: [id number]
== END 2021-06-04 10:50 | disposition home or self-care (01) ==
LOC: DI 10:49
PROVIDERS: ATTEND Physician Assistant
DX: Z12.2 Encounter for screening for malignant neoplasm of respiratory organs (principal); F17.210 Nicotine dependence, cigarettes, uncomplicated; J43.2 Centrilobular emphysema; I25.10 Atherosclerotic heart disease of native coronary artery without angina pectoris

== ENCOUNTER 2021-09-22 14:47 | Outpatient (CLI) | payer MEDICARE ==
--- NOTE | 2021-09-22 17:16 | CT Report ---
PROCEDURE: CHEST WO INDICATIONS: LUNG NODULE TECHNIQUE: Noncontrast 1mm axial images were acquired from the pulmonary apices to the posterior costophrenic an gles. Axial 5 mm soft tissue kernel reconstructions were performed as well as 8 mm axial MIP and cor onal and sagittal 5 mm reformations. For radiation dose reduction, the following was used: automate d exposure control, adjustment of mA and/or kV according to patient size. COMPARISON: 06/04/2021 and 05/11/2016 FINDINGS: Image quality: Excellent. Lungs and pleura: No acute air space opacities. No pleural effusions or pneumothorax. Central and peripheral airways are patent and normal in caliber. Mild pulmonary emphysematous changes are again n oted. Stable 5 mm subpleural nodule visualized within the left lower lobe (image 167/series 4). Other lynn, no new or suspicious pulmonary nodules or masses. No septal thickening or nodularity. Mediastinum: Heart size is normal. No pericardial effusion. Moderate atherosclerotic calcifications of the coronary arteries. No mediastinal adenopathy by size criteria. Thoracic aorta and central p ulmonary arteries are normal in size with scattered atherosclerotic calcifications. Esophagus is nor mal in caliber. No hiatal hernia. Bones and chest wall: No suspicious bony lesions. No acute vertebral body compression fractures. M ultilevel thoracic spondylosis. Partially imaged lumbar spinal fusion hardware. No axillary or suprac lavicular adenopathy by size criteria. Thyroid gland is unremarkable in appearance. Bilateral breast implants are noted. Abdomen: Visualized upper abdominal solid organs and bowel loops appear normal in the absence of con trast. IMPRESSION: 1. CT chest without acute cardiopulmonary abnormalities. 2. No new or suspicious pulmonary nodules. Stable 5 mm left lower lobe subpleural nodule. 3. Redemonstration of mild pulmonary emphysematous changes. 4. Moderate atherosclerosis. Lung RADS 2 (benign): Recommend continued annual low-dose screening chest CT as long as patient behzad nues to meet screening criteria. CLINICAL RECOMMENDATION STATEMENTS: In patients <35 years with an ITN detected on CT, MRI, or extrathyroidal ultrasound, the Committee re commends further evaluation with dedicated thyroid ultrasound if the nodule is "e1 cm and has no susp icious imaging features, and if the patient has normal life expectancy. In patients "e35 years with an ITN detected on CT, MRI, or extrathyroidal ultrasound, the Committee r ecommends further evaluation with dedicated thyroid ultrasound if the nodule is "e1.5 cm and has no s uspicious imaging features, and if the patient has normal life expectancy. (ACR, 2014) Reviewed by: Guy Martinez MD on 09/22/2021 5:15 PM PDT Approved by: Guy Martinez MD on 09/22/2021 5:15 PM PDT Station ID: [id number]
== END 2021-09-22 14:48 | disposition home or self-care (01) ==
LOC: DI 14:47
PROVIDERS: ATTEND Orthopaedic Surgery
DX: R91.1 Solitary pulmonary nodule (principal); J43.9 Emphysema, unspecified; I70.90 Unspecified atherosclerosis

== ENCOUNTER 2022-07-10 22:03 | Emergency (ER) | payer MEDICARE ==
[2022-07-10 23:07] LABS: BASOPHILS # (AUTO) 0.1 10^3/uL (0.0-0.1); BASOPHILS % (AUTO) 0.7 %; EOSINOPHILS # (AUTO) 1.9 10^3/uL (0.0-0.7); EOSINOPHILS % (AUTO) 20.3 %; HCT - HEMATOCRIT 37.1 % (37.0-47.0); HGB - HEMOGLOBIN 11.5 g/dL (12.0-16.0); LYMPHOCYTES # (AUTO) 3.8 10^3/uL (1.5-3.5); LYMPHOCYTES % (AUTO) 40.7 %; MEAN CORPUSCULAR HEMOGLOBIN 29.6 pg (27.0-31.0); MEAN CORPUSCULAR VOLUME 95.4 fL (81.0-99.0); MEAN PLATELET VOLUME 9.7 fL (7.9-10.8); MONOCYTES # (AUTO) 0.6 10^3/uL (0.0-1.0); MONOCYTES % (AUTO) 6.8 %; NEUTROPHILS # (AUTO) 2.9 10^3/uL (1.5-6.6); NEUTROPHILS % (AUTO) 31.4 %; PLT - PLATELET COUNT 209 10^3/uL (130-450); RED BLOOD COUNT 3.89 10^6/uL (4.20-5.40); RED CELL DISTRIBUTION WIDTH 13.3 % (12.0-15.0); WHITE BLOOD COUNT 9.4 x10^3/uL (4.8-10.8)
[2022-07-10 23:15] LABS: SLIDE REVIEW? Indicated
[2022-07-10 23:20] LABS: ALBUMIN 4.1 g/dL (3.2-5.5); ALBUMIN/GLOBULIN RATIO 1.2 (1.0-2.2); ALKALINE PHOSPHATASE 76 IU/L (42-121); ALT ALANINE AMINOTRANSFERASE 12 IU/L (10-60); AST ASPARTATE AMINOTRANSFERASE 18 IU/L (10-42); BILIRUBIN,TOTAL < 0.2 mg/dL (0.2-1.0); BUN - BLOOD UREA NITROGEN 26 mg/dL (6-20); CALCIUM 9.2 mg/dL (8.5-10.3); CARBON DIOXIDE - CO2 27 mmol/L (21-32); CHLORIDE 103 mmol/L (101-111); CREATININE 1.3 mg/dL (0.4-1.0); GFR - MDRD 40 (>89); GLUCOSE 107 mg/dL (70-100); LIPASE 57 U/L (22-51); SODIUM 136 mmol/L (135-145); TOTAL PROTEIN 7.6 g/dL (6.7-8.2)
[2022-07-10 23:37] LABS: PLATELET MORPHOLOGY NORMAL APPEARANCE (NORMAL); RBC MORPHOLOGY (MULTIPLE) NORMAL APPEARANCE (NORMAL)
[2022-07-10 23:38] LABS: DIFFERENTIAL COMMENT MANUAL=AUTO DIFF; PLATELET ESTIMATE, MANUAL NORMAL (130-450,000) (NORMAL)
--- NOTE | 2022-07-11 02:26 | ED Physician Documentation ---
History of Present Illness - Stated complaint Stated Complaint: DR SIMMS TO ER - Chief complaint Chief Complaint: General - Additonal information Additional information: 72yF with pmh anemia, kidney disease, CAD, presents from cardiology clinic (Dr. Le) with potassium 6.3 on outpatient labwork. Patient was visiting for a preprocedural appointment. She is scheduled for angioplasty for 70% LAD occlusion. She states she did not know her potassium was an issue until they called her, and she has not taken any medications for it. Asymptomatic at present. 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: Other : Retention, Incontinence, Frequency, Other HEENT: Chronic vision loss, Chronic sinusitis Psych: Depression, Anxiety, Claustrophobia Musculoskeletal: Osteoarthritis, Other Derm: None - Past Surgical History Past Surgical History: Yes General: Colonoscopy, EGD Ortho: Other Cardiovascular: Cardiac catheterization, Angioplasty - Present Medications Home Medications: Ambulatory Orders Medication Instructions Recorded Confirmed Escitalopram [Lexapro] 10 mg PO DAILY 07/13/20 08/24/20 Gabapentin [Neurontin] 300 mg PO BID 07/13/20 08/24/20 Meloxicam [Mobic] 1 tablet PO DAILY PRN 07/13/20 08/24/20 Oxycodone HCl/Acetaminophen 1 each PO Q6HR PRN 07/13/20 08/24/20 [Percocet 5-325 mg Tablet] Pantoprazole [Protonix] 40 mg PO DAILY 07/13/20 08/24/20 Simvastatin [Zocor] 40 mg PO DAILY 07/13/20 08/24/20 buPROPion HCL [Bupropion HCl Sr] 150 mg PO BID 07/13/20 08/24/20 busPIRone [Buspar] 5 mg PO BID 07/13/20 08/24/20 predniSONE [Deltasone] 10 mg PO DAILY 07/13/20 08/24/20 - Allergies Allergies/Adverse Reactions: Allergies Allergy/AdvReac Type Severity Reaction Status Date / Time codeine Allergy Unknown Verified 07/10/22 22:29 doxycycline Allergy Respiratory Verified 07/10/22 22:29 Penicillins Allergy Unknown Verified 07/10/22 22:29 Sulfa (Sulfonamide Allergy Unknown Verified 07/10/22 22:29 Antibiotics) - Social History Does the pt smoke?: No Smoking Status: Never smoker Does the pt drink ETOH?: No Does the pt have substance abuse?: No - Immunizations Immunizations are current?: Yes - POLST Patient has POLST: No POLST Status: Full Code PD ED PE NORMAL - Vitals Vital signs reviewed: Yes - General General: Alert and oriented X 3, No acute distress, Well developed/nourished - HEENT HEENT: Atraumatic, PERRL, EOMI - Neck Neck: Supple, no meningeal sign - Cardiac Cardiac: RRR - Respiratory Respiratory: No respiratory distress, Clear bilaterally - Abdomen Abdomen: Non tender, Non distended - Derm Derm: Normal color, Warm and dry - Extremities Extremities: No deformity - Neuro Neuro: No motor deficit, No sensory deficit - Psych Psych: Normal mood, Normal affect Results - Vitals Vitals: Vital Signs - 24 hr 07/10/22 07/10/22 07/11/22 22:29 23:05 01:00 Temperature 36.9 C Heart Rate 46 L 84 47 L Respiratory 16 18 15 Rate Blood Pressure 156/43 H 175/55 H O2 Saturation 97 98 98 07/11/22 07/11/22 01:30 02:33 Temperature 37.2 C Heart Rate 45 L 54 L Respiratory 17 16 Rate Blood Pressure 180/78 H 194/61 H O2 Saturation 100 99 Oxygen O2 Source Room air - EKG (time done) 0119 EKG releavant findings:: EKG personally interpreted by author of this note. Relevant findings are: Rate: Rate (enter#) (65) Rhythm: Other (bigeminy) Intervals: Normal RI QRS: Normal Ischemia: Normal ST segments - Labs Labs: Laboratory Tests 07/10/22 07/10/22 22:56 22:56 WBC 9.4 RBC 3.89 L Hgb 11.5 L Hct 37.1 MCV 95.4 MCH 29.6 MCHC 31.0 L RDW 13.3 Plt Count 209 MPV 9.7 Neut # (Auto) 2.9 Lymph # (Auto) 3.8 H [place] # (Auto) 0.6 Eos # (Auto) 1.9 H Baso # (Auto) 0.1 Absolute Nucleated RBC 0.00 Band Neuts % (Manual) Not Reportable Abnorm Lymph % (Manual) Not Reportable Nucleated RBC % 0.0 Neutrophils # (Manual) Not Reportable Lymphocytes # (Manual) Not Reportable Monocytes # (Manual) Not Reportable Eosinophils # (Manual) Not Reportable Basophils # (Manual) Not Reportable Differential Comment MANUAL=AUTO DIFF Manual Slide Review Indicated Platelet Estimate NORMAL (130-450,000) Platelet Morphology NORMAL APPEARANCE RBC Morph Micro Appear NORMAL APPEARANCE Sodium 136 Potassium 5.0 Chloride 103 Carbon Dioxide 27 Anion Gap 6.0 BUN 26 H Creatinine 1.3 H Estimated GFR (MDRD) 40 L Glucose 107 H Calcium 9.2 Total Bilirubin < 0.2 L AST 18 ALT 12 Alkaline Phosphatase 76 Total Protein 7.6 Albumin 4.1 Globulin 3.5 Albumin/Globulin Ratio 1.2 Lipase 57 H PD Medical Decision Making - ED course ED course: 72yF p/w elevated outpatient potassium. normal on repeat testing here. She does have some anemia on cbc with hb 11.5 but states she was told she was anemic in the past. Also with Cre 1.3, and she knows she has mild chronic kidney disease. EKG showed bigeminy. previous ekg from 2019 was nsr. given patient is asymptomatic, I will call her ladle liner to discuss and likely will have her follow up outpatient. d/w Dr. De Anda, ladle liner radiation oncology nurse for Dr. Osman, who states she had been undergoing workup for her bigeminy. He agrees with outpatient follow up. Return precautions given. Departure - Departure Disposition: 01 Home, Self Care Clinical Impression: Bigeminy, Encounter for medical screening examination, Anemia Condition: Stable Instructions: Premature Ventricular Contract About Comments: You were seen in the emergency department for medical evaluation.Your potassium level was normal. Your EKG showed bigeminy, which is a heart rhythm problem. Please follow-up with your ladle liner. Return to the emergency department for new or worsening symptoms or other concerns.
[2022-07-11 03:34] VITALS: BP 148/51
== END 2022-07-11 03:34 | disposition home or self-care (01) ==
LOC: ED 22:03
DX: Z13.89 Encounter for screening for other disorder (principal); I49.8 Other specified cardiac arrhythmias; D64.9 Anemia, unspecified; I10 Essential (primary) hypertension
CPT/HCPCS: 36415; 80053; 83690; 85025; 93005; 99284

== ENCOUNTER 2023-01-02 14:09 | Outpatient (CLI) | payer MEDICARE ==
--- NOTE | 2023-01-03 11:32 | Mammography Report ---
BILATERAL DIGITAL SCREENING MAMMOGRAM 3D/2D WITH AUGMENTATION: 01/02/2023 CLINICAL: Routine screening. Comparison is made to exams dated: 09/11/2018 mammogram, 01/27/2014 mammogram, and 05/29/2016 mammogram - [facility]. There are scattered areas of fibroglandular density in both breasts (category b / 25%-50% glandular t issue). There are bilateral intact subpectoral saline implants. No significant masses, calcifications, or oth er findings are seen in either breast. IMPRESSION: BENIGN Bilateral intact subpectoral saline implants. No mammographic evidence of malignancy. A 1 year screen ing mammogram is recommended. Based on the Tyrer Cuzick model (a risk assessment model) the patients lifetime risk is 2.6% and her 10 year risk is 1.8%. According to the ACR, ACS, and NCCN guidelines, an annual breast MRI exam elaina g with mammogram is recommended if the patients lifetime risk is 20% or greater. This exam was interpreted at Station ID: [id number]. NOTE: For mammograms, a report in lay terms will be sent to the patient. Approximately 15% of breast malignancies will not be visualized mammographically. In the management of a palpable breast mass, a negative mammogram must not discourage biopsy of a clinically suspicious lesion. Electronically Signed By: Lorena Mccracken M.D. esb/:01/02/2023 16:35:20 letter sent: No_Letter ACR BI-RADS Category 2: Benign Finding(s) 3342F PARENCHYMAL PATTERN: (A) - The breast(s) demonstrate(s) scattered fibroglandular densities. BI-RADS CATEGORY: (2) - 2 Mammogram [id number] 1 year screening LATERALITY: (B)
== END 2023-01-02 14:10 | disposition home or self-care (01) ==
LOC: DI 14:09
PROVIDERS: ATTEND Internal Medicine
DX: Z12.31 Encounter for screening mammogram for malignant neoplasm of breast (principal); Z98.82 Breast implant status

== ENCOUNTER 2023-01-02 14:10 | Outpatient (CLI) | payer MEDICARE ==
--- NOTE | 2023-01-02 20:29 | XRAY Report ---
PROCEDURE: Knee 3 View BILAT INDICATIONS: BILAT KNEE PAIN TECHNIQUE: 2 views of the knee was obtained. COMPARISON: None FINDINGS: Bones: No fractures or dislocations. No suspicious bony lesions. Irregular sclerosis noted in both proximal tibia metaphysis. Moderate bilateral joint space narrowing with chondrocalcinosis noted in t he right lateral compartment. Soft tissues: Small bilateral knee joint effusion. No suspicious soft tissue calcifications or blaze s. 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
== END 2023-01-02 14:11 | disposition home or self-care (01) ==
LOC: DI 14:10
PROVIDERS: ATTEND Internal Medicine
DX: M17.0 Bilateral primary osteoarthritis of knee (principal); M25.462 Effusion, left knee; M25.461 Effusion, right knee; R93.6 Abnormal findings on diagnostic imaging of limbs

== ENCOUNTER 2023-02-06 10:48 | Outpatient (CLI) | payer MEDICARE ==
--- NOTE | 2023-02-06 16:01 | DEXA Report ---
PROCEDURE: Dexa Spine and/or Hip INDICATIONS: MENOPAUSAL TECHNIQUE: Dual energy x-ray absorptiometry (DXA) was performed on a [employer]. Regions measur ed are the AP Spine, femoral neck, and if needed forearm. COMPARISON: 02/21/2019 FINDINGS: Lumbar Spine (L2-L3): Bone Mineral Density 0.936 g/cm/cm,T score -2.2. Since the most recent prior study, there has been a statistically significant decrease in bone mineral density by 15.4 percent. Left Femoral Neck: Bone Mineral Density 0.685 g/cm/cm, T score -2.5. Left Hip: Bone Mineral Density 0.743 g/cm/cm,T score -2.1. Since the most recent prior study, there has been a statistically significant decrease in bone mineral density by 27.2 percent. (T score greater or equal to -1.0: NORMAL) (T score from -1.1 to -2.4: OSTEOPENIA) (T score less than or equal to -2.5 to: OSTEOPOROSIS) Impression: By WHO criteria, this patient has osteoporosis. Interval statistical decrease in bone mineral density of the lumbar spine and hip. Patients with diagnosis of osteoporosis or osteopenia should have regular bone mineral density assess ment. For those eligible for Medicare, routine testing is allowed once every 2 years. Testing frequ ency can be increased for patients who have rapidly progressing disease or for those who are receivin g medical therapy to restore bone mass. Reviewed by: Vinod Gonsales MD on 02/06/2023 4:00 PM PDT Approved by: Vinod Gonsales MD on 02/06/2023 4:00 PM PDT Station ID: [id number]
== END 2023-02-06 10:49 | disposition home or self-care (01) ==
LOC: DI 10:48
PROVIDERS: ATTEND Internal Medicine
DX: M81.0 Age-related osteoporosis without current pathological fracture (principal)

== ENCOUNTER 2023-10-02 14:00 | Outpatient (CLI) | payer MEDICARE ==
--- NOTE | 2023-10-02 14:40 | XRAY Report ---
PROCEDURE: Chest 2V INDICATIONS: FATIGUE, COUGH TECHNIQUE: 2 views of the chest were acquired. COMPARISON: 03/02/2018. FINDINGS: Surgical changes and devices: Interval pacer placement. Right shoulder arthroplasty. Lungs and pleura: No pleural effusions or pneumothorax. Lungs are clear. Mediastinum: Mediastinal contours appear normal. Heart size is normal. Bones and chest wall: No suspicious bony lesions. Overlying soft tissues appear unremarkable. IMPRESSION: No acute cardiopulmonary process. Reviewed by: Shadi Herrera MD on 10/02/2023 2:38 PM PDT Approved by: Shadi Herrera MD on 10/02/2023 2:38 PM PDT Station ID: [id number]
== END 2023-10-02 14:01 | disposition home or self-care (01) ==
LOC: DI 14:00
PROVIDERS: ATTEND Internal Medicine
DX: R53.83 Other fatigue (principal); R05.9 Cough, unspecified

== ENCOUNTER 2023-11-07 12:11 | Outpatient (CLI) | payer MEDICARE ==
--- NOTE | 2023-11-07 20:07 | XRAY Report ---
PROCEDURE: Knee 3V BL INDICATIONS: KNEE PAIN TECHNIQUE: 3 views each of the right and left knees. COMPARISON: Bilateral knee radiographs 01/02/2023. FINDINGS: Bones: No acute fractures or dislocations. Chronic bone infarcts redemonstrated. Mild to moderate bi lateral tricompartmental joint space narrowing does not appear significantly changed when compared to the exam from 01/02/2023. Soft tissues: Small bilateral knee joint effusion. Chondrocalcinosis. 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 2.Stable chronic bilateral bone infarcts. 3.Chondrocalcinosis. Differential diagnosis includes but is not limited to CPPD, hyperparathyroidism , and hemochromatosis. Reviewed by: Vinod Gonsales MD on 11/07/2023 8:06 PM PDT Approved by: Vinod Gonsales MD on 11/07/2023 8:06 PM PDT Station ID: [id number]
== END 2023-11-07 12:12 | disposition home or self-care (01) ==
LOC: DI 12:11
PROVIDERS: ATTEND Internal Medicine
DX: M17.0 Bilateral primary osteoarthritis of knee (principal); M11.262 Other chondrocalcinosis, left knee; M11.261 Other chondrocalcinosis, right knee